=== PATIENT | female | born 1945 ===

== ENCOUNTER 2018-01-21 18:01 | Inpatient (IN) | payer MEDICARE ==
[2018-01-21 18:01] VITALS: BMI 23.0
--- NOTE | 2018-01-21 19:26 | ED PDOC ---
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 Patient reports she slipped at the threshold of building on wet metal. When she fell, her left leg went under her and her ankle twisted. Patient reports sever pain on inside of left ankle and on knee. She denies numbness, lesions or any other injuries. Injury was splinted and iced by firemen on scene and she was transported here. PMD: Dr. Martines - Knee Description Of Injury: Fell - Ankle/Foot Description Of Injury: Fell Past Medical History Reviewed: Historical Data, Nursing Documentation, Vital Signs Vital Signs: Last Vital Signs Temp 98.6 F 01/21/18 18:05 Pulse 68 01/21/18 18:05 Resp 19 01/21/18 18:05 BP 141/75 01/21/18 18:05 Pulse Ox 100 01/21/18 18:05 - Medical History PMH: Arthritis, HTN, Hypercholesterolemia, Osteoporosis - Surgical History Surgical History: (x 1) - Family History Family History: States: No Known Family Hx - Social History Current smoker - smoking cessation education provided: No Ex-Smoker (has not smoked in the last 12 months): No Alcohol: None Drugs: Denies - Home Medications Home Medications: Ambulatory Orders Medication Instructions Recorded Atorvastatin [Lipitor] 40 mg PO DAILY 01/22/18 Dicyclomine [Bentyl] 20 mg PO TID 01/22/18 Omeprazole 40 mg PO DAILY 01/22/18 Valsartan/Hydrochlorothiazide 1 mg PO DAILY 01/22/18 [Diovan Hct 160-12.5 mg Tab] Acetaminophen [Tylenol 325mg tab] 650 mg PO Q6 PRN tab 01/26/18 Cephalexin [Keflex] 500 mg PO Q12 cap 01/26/18 Enoxaparin [Lovenox] 40 mg SC DAILY syr 01/26/18 oxyCODONE/Acetaminophen [Percocet 1 tab PO Q4 PRN tab 01/26/18 5/325 mg Tab] oxyCODONE/Acetaminophen [Percocet 2 tab PO Q4 PRN tab 01/26/18 5/325 mg Tab] - Allergies Allergies/Adverse Reactions: Allergies Allergy/AdvReac Type Severity Reaction Status Date / Time No Known Allergies Allergy Verified 01/21/18 18:05 Review of Systems ROS Statement: Except As Marked, All Systems Reviewed And Found Negative Musculoskeletal: Positive for: Other (left knee and ankle pain ) Physical Exam - Reviewed Nursing Documentation Reviewed: Yes Vital Signs Reviewed: Yes - Physical Exam Appears: Positive for: In Acute Distress (painful ) Head Exam: Positive for: ATRAUMATIC, NORMOCEPHALIC Skin: Positive for: Warm, Dry Eye Exam: Positive for: EOMI, PERRL ENT: Positive for: Pharynx Is (clear). Negative for: Pharyngeal Erythema, Tonsillar Exudate Neck: Positive for: Painless ROM, Supple Cardiovascular/Chest: Positive for: Regular Rate, Rhythm. Negative for: Murmur Respiratory: Positive for: Normal Breath Sounds. Negative for: Wheezing Gastrointestinal/Abdominal: Positive for: Soft. Negative for: Mass, Distended, Guarding, Rebound Back: Positive for: Normal Inspection. Negative for: Decreased ROM Extremity: Positive for: Capillary Refill (< 2 seconds), Other (Left knee: no deformity, tenderness to palpation on patella, flexion and extension intact. No tenderness to palpation at proximal fibula. Left ankle: Bilateral malleolar edema, tenderness to the medial malleolus, no tenderness at lateral malleolus, no tenderness at base of fifth metatarsal, plantar and dorsiflexion elicit pain, 4+/5 in strength, light touch intact, pedal pulses intact) Lymphatic: Negative for: Adenopathy Neurologic/Psych: Positive for: Alert, Oriented (x3). Negative for: Motor/Sensory Deficits - Laboratory Results Result Diagrams: 01/26/18 05:40 01/26/18 05:40 - ECG ECG: Positive for: Interpreted By Me ECG Rhythm: Positive for: Normal QRS, Normal ST Segment, Sinus Rhythm, Junctional Rhythm O2 Sat by Pulse Oximetry: 100 (RA) Pulse Ox Interpretation: Normal Medical Decision Making Medical Decision Making: Time: 1856 Initial Impression: Ankle and knee injury Initial Impression: --Left knee XR --Morphine 3 mg IM --Motrin 600 mg PO --Left ankle XR --Left tibia fibula XR Time: 1929 --Patient reports she forgot that she has been having vomiting and diarrhea for the past week. She has associated left sided abdominal pain for the last two days. She has been unable to eat since and reports dizziness. On exam, patients abdomen is soft, tender to palpation in the left upper and lower quadrant, no mass, no guarding, and no rebound. Diverticulitis workup initiated. Time:2044 --XR demonstrated displaced trimalleolar fracture. Will keep patient NPO for now, pending podiatry consult. Discussed findings and plan of care with patient. --XR demonstrated nondisplaced patellar fracture. --Labs otherwise unremarkable. Serious acute diverticular disease unlikely. Podiatry evaluated pt. Pt to have ankle reduction in ER and admit for surgery. C onsents obtained. [employer] glazier apprentice used: [id number] Post sedation/reduction. DW Dr Lynn Hospitalist for admission. 1120p HARLAN Ellis Orthopedist re: patella fx. Requests CT knee. Order placed. Scribe Attestation: Documented by Margarita Del Valle, acting as a scribe for Lisa Ribera MD Provider Scribe Attestation: All medical record entries made by the Scribe were at my direction and personally dictated by me. I have reviewed the chart and agree that the record accurately reflects my personal performance of the history, physical exam, medical decision making, and the department course for this patient. I have also personally directed, reviewed, and agree with the discharge instructions and disposition. Disposition - Clinical Impression Clinical Impression: Trimalleolar fracture of ankle, closed, Patella fracture Discussed With Dr.: Shravan Lynn Counseled Patient/Family Regarding: Studies Performed, Diagnosis - Disposition Disposition Time: 22:00 Condition: FAIR - Pt Status Changed To: Hospital Disposition Of: Inpatient - Admit Certification Admit to Inpatient:: After my assessment, the patient will require hospitalization for at least two midnights. This is because of the severity of symptoms shown, intensity of services needed, and/or the medical risk in this patient being treated as an outpatient. - POA Present On Arrival: Falls Or Trauma ED Procedural Sedation - Pre Anesthesia Assessment Chief Complaint: Lower Extremity Problem/Injury Past Medical History: Medications Reviewed, Allergies Reviewed, Record Review Previous Surgies: Reviewed Family History/Social History: Reviewed - Physical Exam/Review of Systems Cardiovascular: Regular Rate and Rhythm, Murmurs, Normal S1, S2 Respiratory/Chest: Clear to Auscultation, Good Air Exchange Neurological: GCS=15, CN II-XII Intact, Speech Normal, Motor Func Grossly Inta ct, Normal Sensory Function, Normal Cerebellar Funct Abdomen: Normal Bowel Sounds Mental Status: Alert and Oriented X 3 - Pre-Procedure Airway Assessment History of difficult intubation or surgical airway (i.e trach):: No Inability to extend neck:: No Mouth opening less than two finger breadth:: No Diagnosis of sleep apnea:: No Less than three finger breadth to hyoid bone:: No ASA Criteria: 1 - Healthy, normal. 2 - Mild systemic disease (No functional limitations, mildline obesity, DM withot complications, Hypertention). 3 - Severe systemic disease (Some functional limitation, stable angina, morbid obesity, controlled COPD/Asthma/CHF). 4 - Sever systemic disease constant thr eat to life (Unstable angina, active symptoms of COPD/Asthma, CHF/Hypertension. 5 - Moribund ASA Clarification: ASA II Mallampati (airway): Class I - Intra-Procedure (Medications) Medications Given: Discontinued Medications Sodium Chloride (Sodium Chloride 0.9%) 1,000 mls @ 1,000 mls/hr IV .Q1H STA Stop: 01/21/18 20:47 Last Admin: 01/21/18 20:01 Dose: 1,000 mls/hr eMAR Start Stop Document 01/21/18 20:01 ND (Rec: 01/21/18 20:02 ND [id number]) Intravenous Solution Start Date 01/21/18 Start Time 20:01 End Date 01/21/18 End time 21:01 Total Infusion Time 60 Ibuprofen (Motrin Tab) 600 mg PO STAT STA Stop: 01/21/18 18:58 Last Admin: 01/21/18 19:14 Dose: 600 mg [facility] Pain Assessment Document 01/21/18 19:14 ND (Rec: 01/21/18 19:17 ND [id number]) Pain Reassessment Is this a pain reassessment? No Presence of Pain Presence of Pain Yes Pain Scale Used Pain Scale Used Numeric Location Left, Right or Bilateral Left Upper or Lower Upper Pain Location Body Site Abdomen Description Description Sharp Intensity of Pain at present 8 Acceptable Level of Pain 2 Re-Assess: [facility] Pain Reassessment Document 01/21/18 20:14 ND (Rec: 01/21/18 20:18 ND [id number]) Sleep Is patient sleeping during reassessment? No Pain Reassessment Pain not relieved and LIP/MD was No notified Pain Scale Used Numeric Pain Scale Level 7 Left, Right or Bilateral Left Upper or Lower Upper Pain Location Body Site Abdomen Description Constant Iohexol (Omnipaque 240 (50 Ml)) 50 ml PO ONCE ONE Stop: 01/21/18 19:49 Last Admin: 01/21/18 20:01 Dose: 50 ml Morphine Sulfate (Morphine) 3 mg IM STAT STA Stop: 01/21/18 18:58 Last Admin: 01/21/18 19:18 Dose: Not Given Non-Admin Reason: Patient Refused [facility] Pain Assessment Document 01/21/18 19:18 ND (Rec: 01/21/18 19:19 ND [id number]) Pain Reassessment Is this a pain reassessment? No Sleep Is patient sleeping during reassessment? No Presence of Pain Presence of Pain Yes Pain Scale Used Pain Scale Used Numeric Location Left, Right or Bilateral Left Pain Location Body Site Ankle Foot Description Description Constant Intensity of Pain at present 10 Acceptable Level of Pain 2 Pain Behavior Facial Grimacing Aggravating Factors Exercise/Activity Propofol (Diprivan) 200 mg IV ONCE ONE Stop: 01/21/18 21:57 - Post-Procedure Post Procedure Note: Pt awake alert and oriented post procedure with no focal deficits, lungs clear. LEFT leg short leg bivalved cast in place. Digits with normal motor, <2 sec CR, light touch intact. See anesthesia note
[2018-01-21] MEDS ORDERED: Sodium Chloride 0.9% 1,000 ML IV STA (19:48)
[2018-01-21] MEDS ORDERED: Iohexol 240 (50 ml) PO ONE (19:48)
[2018-01-21] MEDS ORDERED: Iohexol 240 (50 ml) ONE (19:59)
[2018-01-21 20:22] LABS: BASO % 0.5 % (0.0-2.0); EOS # 0.1 K/uL (0.0-0.7); EOS % 0.8 % (0.0-4.0); HEMOGLOBIN 12.4 g/dL (12.0-16.0); LYMPH # 0.9 K/uL (1.0-4.3); LYMPH % 12.7 % (20.0-40.0); MEAN CELL VOLUME 93.1 fl (81.0-99.0); MEAN CORPUSCULAR HEMOGLOBIN 31.6 pg (27.0-31.0); MEAN CORPUSCULAR HGB CONC 33.9 g/dL (33.0-37.0); MEAN PLATELET VOLUME 9.4 fl (7.2-11.7); MONO # 0.4 K/uL (0.0-0.8); MONO % 5.7 % (0.0-10.0); NEUT # 5.6 K/uL (1.8-7.0); NEUT % 80.3 % (50.0-75.0); RBC 3.91 Mil/uL (3.80-5.20); RED CELL DISTRIBUTION WIDTH 14.7 % (11.5-14.5)
[2018-01-21 20:30] LABS: ALB/GLOB RATIO 1.2 (1.0-2.1); ALT/SGPT 31 U/L (9-52); AST/SGOT 42 U/L (14-36); BLOOD UREA NITROGEN 17 mg/dl (7-17); CALCIUM 9.5 mg/dL (8.4-10.2); GFR NON-AFRICAN AMERICAN 54; LIPASE 131 U/L (23-300)
[2018-01-21 21:20] LABS: PROTHROMBIN TIME 11.5 Seconds (9.8-13.1)
[2018-01-21] MEDS ORDERED: Lidocaine PF 2% (5 ml) Inj (For Cardiac Arrhy) ONE (21:46)
[2018-01-21] MEDS ORDERED: Povidone Iodine Topical 10% Sol ONE (21:46)
[2018-01-21] MEDS ORDERED: Propofol 10 mg/ml Inj (20 ML) IV ONE (21:56)
[2018-01-21] MEDS ORDERED: Propofol 10 mg/ml 0 MG/0 ML VIAL ONE (22:04)
--- NOTE | 2018-01-21 22:05 | CP.PCM.CON ---
History of Present Illness - History of Present Illness History of Present Illness: Podiatry Consult Note- Dr. Demarco 72F with PMH of HLD, HTN, diverticulosis and osteoarthritis seen and evaluated for left ankle pain. Patients daughter is at bedside. Patient reports as she was walking in from outside, her right foot slipped and she twisted her left ankle and landed awkwardly at 5pm tonight. Reports ankle looked out of place and heard a pop in which ankle appeared normal. Reports pain persisted and decided to go to the ER. Rates her pain at the ankle 810. Describes pain as a throbbing, achy pain. Denies numbness or tingling. Reports swelling to the ankle. Reports last eating and drinking at 8pm. Denies nausea, fever, shortness of breath, chest pain or chills. Reports pain to the left knee as well. PMD: Dr. Lacy PMH: HTN, HLD, diverticulosis and osteoarthritis PSH: FH: non-contributory SH: denies smoking, drinking alcohol, and illicit drug use ALL: NKDA MEDS: see med list Past Patient History - Infectious Disease Hx of Infectious Diseases: None - Past Social History Alcohol: None Drugs: Denies - CARDIAC Hx Hypercholesterolemia: Yes Hx Hypertension: Yes - MUSCULOSKELETAL/RHEUMATOLOGICAL Hx Arthritis: Yes Hx Osteoporosis: Yes - PSYCHIATRIC Hx Substance Use: No Meds Allergies/Adverse Reactions: Allergies Allergy/AdvReac Type Severity Reaction Status Date / Time No Known Allergies Allergy Verified 01/21/18 18:05 Physical Exam - Constitutional Appears: Well, Non-toxic, No Acute Distress - Extremities Exam Extremities exam: Negative for: calf tenderness Additional comments: VASC: DP and PT 2/4 BL, CFT < 3 seconds x 10 digit, temperature gradient cool to cool, localized nonpitting edema noted to entire left ankle ORTHO: pain with palpation to the entire ankle as well as medial and lateral malleolus, anterior ankle. Pain with passive ankle ROM, limited ankle ROM and MM secondary to guarding NEURO: gross and protective sensation intact DERM: no open lesions, no ecchymosis, no blisters, skin tugor and texture WNL Results - Vital Signs Recent Vital Signs: Last Vital Signs Temp 98.6 F 01/21/18 18:05 Pulse 68 01/21/18 18:05 Resp 19 01/21/18 18:05 BP 141/75 01/21/18 18:05 Pulse Ox 100 01/21/18 20:52 - Labs Result Diagrams: 01/21/18 20:17 01/21/18 20:17 Labs: Laboratory Results - last 24 hr 01/21/18 01/21/18 01/21/18 20:17 20:17 21:05 WBC 7.0 RBC 3.91 Hgb 12.4 Hct 36.4 MCV 93.1 MCH 31.6 H MCHC 33.9 RDW 14.7 H Plt Count 257 MPV 9.4 Neut % (Auto) 80.3 H Lymph % (Auto) 12.7 L [place] % (Auto) 5.7 Eos % (Auto) 0.8 Baso % (Auto) 0.5 Neut # (Auto) 5.6 Lymph # (Auto) 0.9 L [place] # (Auto) 0.4 Eos # (Auto) 0.1 Baso # (Auto) 0.0 PT 11.5 INR 1.0 APTT 27.0 Sodium 139 Potassium 4.1 Chloride 105 Carbon Dioxide 27 Anion Gap 11 BUN 17 Creatinine 1.0 Est GFR ( Amer) > 60 Est GFR (Non-Af Amer) 54 Random Glucose 109 H Calcium 9.5 Total Bilirubin 0.4 AST 42 H ALT 31 Alkaline Phosphatase 107 Total Protein 7.4 Albumin 4.0 Globulin 3.4 Albumin/Globulin Ratio 1.2 Lipase 131 Assessment & Plan - Assessment and Plan (Free Text) Assessment: 72F with PMH of HTN, HLD with Left displaced bimalleolar ankle fracture Plan: Patient seen and examined Discussed plan in detail with attending Dr. Demarco Chart, labs, vitals reviewed X-rays reviewed- left displaced left bimalleolar fracture npted Discussed plan with patient and daughter in detail, including closed reduction of left ankle fracture and surgical intervention of left ankle fracture with open reduction internal fixation. Explained to patient benefits, complications, alternatives and patient is agreeable. Patient is agreeable to closed reduction of displaced left ankle fracture in ED Patient consented to closed reduction of displaced left ankle fracture ED physician provided conscious sedation, administered 10cc of 2% lidocaine plain in hematoma block fashion Closed reduction performed, cast applied, bivalved Post reduction X-rays left ankle ordered CT ordered RICE protocol NWB to right lower extremity with assisting device Will consult PT once on floors Thank you for allowing us to participate in patient's care
[2018-01-21] MEDS ORDERED: Propofol 10 mg/ml Inj (20 ML) ONE (22:06)
[2018-01-21] MEDS ORDERED: Flumazenil 0.1 mg/ml Inj (5ml) IVP ONE (22:15)
[2018-01-21] MEDS ORDERED: Dextrose 5%/0.9% NS 1,000 ML IV ONE (23:38)
--- NOTE | 2018-01-21 23:43 | CP.PCM.HP ---
<Jaleel Rucker - Last Filed: 01/21/18 23:38> History of Present Illness - History of Present Illness History of Present Illness: CC: left ankle fracture HPI: 72 y/o woman w/ pmh of HTN, HLD, diverticulosis and Osteoarthritis presents to ED w/ left ankle fracture s/p fall. Patient fell exiting building of residence. Patient was leaving building due to fire alarm and slipped on wet metal grating floor. Patient denies head trauma, LOC, or any other trauma. Patient's daughter is at bedside. Patient has no other history of falls. Patient normally ambulates w/o any assist device. Patient denies current headaches, chest pain, SOB, abdominal pain, nausea, vomiting, diarrhea, dysuria , or fever. Patient did have epigastric/LUQ pain 2-3 days ago w/ x1 episode of non-bilious/non-bloody vomit which has resolved but intermittently occurs in the past. ED course: vitals: 98.6F, 72 beats/min, 144/77 mm Hg, resp 17, O2 100% room air CBC:7.0>12.4/36.4<257 CMP: 139/4.1, 105/27, 17/1.0, glucose 109, AST 42, ALT 31, alk phos 107 Lipase: 131 CXR: (preliminary) no active disease process Ankle XR: (preliminary) fracture at left medial and lateral malleolus Knee XR: (preliminary) patellar fracture Tibia/Fibula XR: (preliminary) fracture at left medial and lateral malleolus Ankle XR: s/p closed reduction Ankle XR: s/p bivalve cast CT Lower Extremity: pending motrin 600 mg once morphine 3 mg IM once IVF NS 1L bolus PMD: Dr. Lacy PMH: HTN, HLD, diverticulosis and Osteoarthritis meds: see med list PSH: 44 years ago Fam: non-contributory SOC: denies smoking, alcohol, and drugs ROS: 12 points assessed and negative unless otherwise reported in HPI Present on Admission - Present on Admission Any Indicators Present on Admission: No History of DVT/PE: No History of Uncontrolled Diabetes: No Urinary Catheter: No Decubitus Ulcer Present: No Review of Systems - Review of Systems All systems: reviewed and no additional remarkable complaints except - Constitutional Constitutional: absent: Chills, Fever, Headache - EENT Eyes: absent: Change in Vision - Cardiovascular Cardiovascular: absent: Chest Pain - Respiratory Respiratory: absent: Cough, Dyspnea - Gastrointestinal Gastrointestinal: absent: Abdominal Pain, Diarrhea, Hematochezia, Melena, Nausea , Vomiting - Genitourinary Genitourinary: absent: Dysuria - Musculoskeletal Musculoskeletal: As Per HPI - Integumentary Integumentary: absent: Rash - Neurological Neurological: absent: Confusion, Dizziness, Headaches Past Patient History - Infectious Disease Hx of Infectious Diseases: None - Past Social History Alcohol: None Drugs: Denies - CARDIAC Hx Hypercholesterolemia: Yes Hx Hypertension: Yes - MUSCULOSKELETAL/RHEUMATOLOGICAL Hx Arthritis: Yes Hx Osteoporosis: Yes - PSYCHIATRIC Hx Substance Use: No Meds Allergies/Adverse Reactions: Allergies Allergy/AdvReac Type Severity Reaction Status Date / Time No Known Allergies Allergy Verified 01/21/18 18:05 Physical Exam - Constitutional Appears: Non-toxic, No Acute Distress - Head Exam Head Exam: ATRAUMATIC, NORMAL INSPECTION, NORMOCEPHALIC - Eye Exam Eye Exam: Normal appearance - ENT Exam ENT Exam: Mucous Membranes Moist - Neck Exam Neck exam: Positive for: Full Rom. Negative for: Tenderness - Respiratory Exam Respiratory Exam: Clear to Auscultation Bilateral, NORMAL BREATHING PATTERN. absent: Accessory Muscle Use, Decreased Breath Sounds, Rales, Rhonchi, Wheezes, Respiratory Distress - Cardiovascular Exam Cardiovascular Exam: REGULAR RHYTHM, RRR, +S1, +S2. absent: Tachycardia - GI/Abdominal Exam GI & Abdominal Exam: Normal Bowel Sounds, Soft. absent: Distended, Tenderness - Extremities Exam Extremities exam: Positive for: tenderness. Negative for: calf tenderness Additional comments: left lower extremity in bivalve cast s/p closed reduction, right LE full ROM - Neurological Exam Neurological exam: Alert, Oriented x3 - Skin Skin Exam: Dry, Intact, Normal Color, Warm Results - Vital Signs Recent Vital Signs: Last Vital Signs Temp 98.6 F 01/21/18 18:05 Pulse 72 01/21/18 22:58 Resp 17 01/21/18 22:58 BP 135/77 01/21/18 22:58 Pulse Ox 100 01/21/18 23:24 - Labs Result Diagrams: 01/21/18 20:17 01/21/18 20:17 Labs: Laboratory Results - last 24 hr 01/21/18 01/21/18 01/21/18 20:17 20:17 21:05 WBC 7.0 RBC 3.91 Hgb 12.4 Hct 36.4 MCV 93.1 MCH 31.6 H MCHC 33.9 RDW 14.7 H Plt Count 257 MPV 9.4 Neut % (Auto) 80.3 H Lymph % (Auto) 12.7 L [place] % (Auto) 5.7 Eos % (Auto) 0.8 Baso % (Auto) 0.5 Neut # (Auto) 5.6 Lymph # (Auto) 0.9 L [place] # (Auto) 0.4 Eos # (Auto) 0.1 Baso # (Auto) 0.0 PT 11.5 INR 1.0 APTT 27.0 Sodium 139 Potassium 4.1 Chloride 105 Carbon Dioxide 27 Anion Gap 11 BUN 17 Creatinine 1.0 Est GFR ( Amer) > 60 Est GFR (Non-Af Amer) 54 Random Glucose 109 H Calcium 9.5 Total Bilirubin 0.4 AST 42 H ALT 31 Alkaline Phosphatase 107 Total Protein 7.4 Albumin 4.0 Globulin 3.4 Albumin/Globulin Ratio 1.2 Lipase 131 Assessment & Plan (1) Trimalleolar fracture of ankle, closed Status: Acute (2) Patella fracture Status: Acute (3) HTN (hypertension) Status: Chronic (4) Diverticulosis Status: Chronic - Assessment and Plan (Free Text) Assessment: 72 y/o woman w/ pmh of HTN, HLD, diverticulosis and Osteoarthritis presents to ED w/ left ankle fracture s/p fall Plan: Left ankle fracture - s/p fall - left trimalleolar fracture - vitals signs stable - CBC:7.0>12.4/36.4<257 - CMP: 139/4.1, 105/27, 17/1.0, glucose 109, AST 42, ALT 31, alk phos 107 - CXR: (preliminary) no active disease process - Ankle XR: (preliminary) fracture at left medial and lateral malleolus - Tibia/Fibula XR: (preliminary) fracture at left medial and lateral malleolus - Ankle XR: s/p closed reduction - Ankle XR: s/p bivalve cast - CT Lower Extremity: pending - motrin 600 mg once - morphine 3 mg IM once - IVF NS 1L bolus - f/u CBC, CMP - podiatry consulted, Dr. Dav - NPO after midnight except meds - pain management: tylenol for mild pain, motrin for moderate pain, percocet for severe pain - IVF D5 NS @ 100 mL/hr Patellar fracture - Knee XR: (preliminary) patellar fracture - orhtopaedic consult ordered HTN - stable BP - monitor for acute changes Diverticulosis - Hx of diverticulosis - no abdominal pain currently - Lipase: 131 Prophylactic measures - DVT: lovenox 40 mg SC daily (hold tomorrow if going to OR) <Shravan Lynn - Last Filed: 01/22/18 05:58> Results - Vital Signs Recent Vital Signs: Last Vital Signs Temp 99.0 F 01/22/18 01:51 Pulse 69 01/22/18 01:51 Resp 19 01/22/18 01:51 BP 135/68 01/22/18 01:51 Pulse Ox 99 01/22/18 01:51 - Labs Result Diagrams: 01/21/18 20:17 01/21/18 20:17 Labs: Laboratory Results - last 24 hr 01/21/18 01/21/18 01/21/18 20:17 20:17 21:05 WBC 7.0 RBC 3.91 Hgb 12.4 Hct 36.4 MCV 93.1 MCH 31.6 H MCHC 33.9 RDW 14.7 H Plt Count 257 MPV 9.4 Neut % (Auto) 80.3 H Lymph % (Auto) 12.7 L [place] % (Auto) 5.7 Eos % (Auto) 0.8 Baso % (Auto) 0.5 Neut # (Auto) 5.6 Lymph # (Auto) 0.9 L [place] # (Auto) 0.4 Eos # (Auto) 0.1 Baso # (Auto) 0.0 PT 11.5 INR 1.0 APTT 27.0 Sodium 139 Potassium 4.1 Chloride 105 Carbon Dioxide 27 Anion Gap 11 BUN 17 Creatinine 1.0 Est GFR ( Amer) > 60 Est GFR (Non-Af Amer) 54 Random Glucose 109 H Calcium 9.5 Total Bilirubin 0.4 AST 42 H ALT 31 Alkaline Phosphatase 107 Total Protein 7.4 Albumin 4.0 Globulin 3.4 Albumin/Globulin Ratio 1.2 Lipase 131 Attending/Attestation - Attestation I have personally seen and examined this patient.: Yes I have fully participated in the care of the patient.: Yes I have reviewed all pertinent clinical information: Yes Notes (Text): 01/22/18 05:47 I saw examined and discussed this patient with Dr Rucker. I agree with the Assessment and plan which reflect my direct input. This is a 72 years old female who fell twisting her left ankle resulting in fracture to the left ankle and to the left Patella. She will be seen by Podiatry Dr Demarco for the Left ankle fracture and by Dr Ellis, orthopedic for the Fractured Patella. Shravan Lynn MD
[2018-01-22] MEDS: Oxycodone/Acetaminophen 5/325 mg Tab PO PRN ×3 (02:11→20:04)
[2018-01-22 06:24] LABS: BASO % 0.5 % (0.0-2.0); EOS # 0.1 K/uL (0.0-0.7); EOS % 1.4 % (0.0-4.0); LYMPH # 1.3 K/uL (1.0-4.3); LYMPH % 26.5 % (20.0-40.0); MEAN CELL VOLUME 93.7 fl (81.0-99.0); MEAN CORPUSCULAR HEMOGLOBIN 31.5 pg (27.0-31.0); MEAN CORPUSCULAR HGB CONC 33.6 g/dL (33.0-37.0); MEAN PLATELET VOLUME 8.8 fl (7.2-11.7); MONO # 0.5 K/uL (0.0-0.8); MONO % 10.8 % (0.0-10.0); NEUT % 60.8 % (50.0-75.0); NRBC % 0.1 % (0.0-0.0); RBC 3.5 Mil/uL (3.80-5.20); RED CELL DISTRIBUTION WIDTH 14.5 % (11.5-14.5); WHITE BLOOD COUNT 4.9 K/uL (4.8-10.8)
[2018-01-22 06:47] LABS: ALB/GLOB RATIO 1.1 (1.0-2.1); ALBUMIN 3.4 g/dL (3.5-5.0); ALT/SGPT 27 U/L (9-52); AST/SGOT 29 U/L (14-36); BLOOD UREA NITROGEN 16 mg/dl (7-17); CALCIUM 8.9 mg/dL (8.4-10.2); GFR NON-AFRICAN AMERICAN 54
--- NOTE | 2018-01-22 08:13 | CP.PCM.PN ---
Subjective - Date & Time of Evaluation Date of Evaluation: 01/22/18 Time of Evaluation: 08:13 - Subjective Subjective: Patient seen this morning at bedside, reports less pain, no overnight events. Seen and evaluated by Podiatry pending to OR on . No other complaints at this time. Afebrile. VSS Objective - Vital Signs/Intake and Output Vital Signs (last 24 hours): Temp Pulse Resp BP Pulse Ox 99.0 F 69 19 135/68 99 01/22/18 01:51 01/22/18 01:51 01/22/18 01:51 01/22/18 01:51 01/22/18 01:51 - Medications Medications: Current Medications Acetaminophen (Tylenol 325mg Tab) 650 mg PO Q6 PRN PRN Reason: Pain, Mild (1-3) Enoxaparin Sodium (Lovenox) 40 mg SC DAILY NICK PRN Reason: Protocol Dextrose/Sodium Chloride (Dextrose 5%/0.9% Ns 1000 Ml) 1,000 mls @ 100 mls/hr IV .Q10H ONE Stop: 01/22/18 09:37 Last Admin: 01/22/18 02:11 Dose: 100 mls/hr Ibuprofen (Motrin Tab) 400 mg PO Q6H PRN PRN Reason: Pain, moderate (4-7) Last Admin: 01/22/18 02:15 Dose: 400 mg Oxycodone/Acetaminophen (Percocet 5/325 Mg Tab) 1 tab PO Q4 PRN PRN Reason: Pain, severe (8-10) Stop: 01/24/18 23:39 - Labs Labs: 01/22/18 05:45 01/22/18 05:45 PT 11.5 Seconds (9.8-13.1) 01/21/18 21:05 INR 1.0 01/21/18 21:05 APTT 27.0 Seconds (25.6-37.1) 01/21/18 21:05 - Constitutional Appears: No Acute Distress - Head Exam Head Exam: NORMAL INSPECTION - Eye Exam Eye Exam: EOMI, PERRL - Respiratory Exam Respiratory Exam: Clear to Ausculation Bilateral, NORMAL BREATHING PATTERN. absent: Rales, Wheezes - Cardiovascular Exam Cardiovascular Exam: REGULAR RHYTHM, +S1, +S2 - GI/Abdominal Exam GI & Abdominal Exam: Soft, Normal Bowel Sounds. absent: Distended, Tenderness - Extremities Exam Extremities Exam: absent: Calf Tenderness Additional comments: L knee immobilizer noted, ankle cast noted in place, toes sensation intact able to move them. - Neurological Exam Neurological Exam: Alert, Awake, Oriented x3 - Psychiatric Exam Psychiatric exam: Normal Mood - Skin Skin Exam: Dry, Warm Assessment and Plan - Assessment and Plan (Free Text) Assessment: 72 y/o woman w/ PMH of HTN, HLD, diverticulosis and Osteoarthritis admitted w/ left ankle fracture and patellar fracture s/p fall. Left ankle fracture (trimalleolar) - s/p fall - Ankle XR: fracture at left medial and lateral malleolus - Tibia/Fibula XR: fracture at left medial and lateral malleolus - s/p close reduction in ED - CT Lower Extremity: official report pending - motrin 600 mg - percocet for severe pain - IVF D5 NS @ 100 mL/hr - podiatry consulted, Dr. Demarco - Scheduled to OR on Patellar fracture - Knee XR: (preliminary) patellar fracture - orhtopaedic consult ordered HTN - stable BP - monitor for acute changes Diverticulosis - Hx of diverticulosis - mild abdominal pain - Resume Bentyl TID prn - Lipase: 131 Prophylactic measures - DVT: lovenox 40 mg SC daily
--- NOTE | 2018-01-22 08:37 | RAD ---
Date of service: 01/21/2018 PROCEDURE: Left Ankle Radiographs. HISTORY: post red COMPARISON: Left ankle radiographs 01/21/2018, 8:20 p.m.. FINDINGS: BONES: Cast obscures fine bone and soft tissue details. Bimalleolar fractures appreciated once again. JOINTS: The ankle mortise appears more normalize than previously shown though some widening remains at the medial segment. SOFT TISSUES: Diffuse soft tissue edema reiterated. OTHER FINDINGS: None. IMPRESSION: Postreduction radiographs demonstrate improvement in positioning of the ankle mortise with bimalleolar fractures reiterated. Cast obscures fine bone and soft-tissue detail.
--- NOTE | 2018-01-22 08:41 | RAD ---
Date of service: 01/21/2018 PROCEDURE: Left Ankle Radiographs. HISTORY: closed reduction displaced left ankle fracture COMPARISON: None FINDINGS: BONES: Postreduction radiographs demonstrate markedly improved positioning of the medial as well as lateral malleolar fractures although limited widening of the medial mortise remains though markedly improved in the interval. JOINTS: Talar dome remains intact mild residual widening of the medial ankle mortise now evident. SOFT TISSUES: Diffuse soft tissue edema reiterated. OTHER FINDINGS: None. IMPRESSION: Marked improvement in medial and lateral malleolar fracture status post reduction. Marked improvement in ankle mortise is noted with some residual widening of the medial mortise remaining.
--- NOTE | 2018-01-22 08:43 | RAD ---
Date of service: 01/21/2018 PROCEDURE: Left Ankle Radiographs. HISTORY: fall severe medial mall pain COMPARISON: None FINDINGS: BONES: Transverse fracture at the medial malleolus is appreciated with oblique fracture of the lateral malleolus identified. Mild comminution is appreciated at the medial malleolus fracture. Both medial lateral malleolar fractures are displaced medially. JOINTS: There is subluxation of the talus laterally approximately 50 percent of the with of the dome with marked widening of the medial mortise evident. No anterior or posterior distraction of the talus apparent. SOFT TISSUES: Moderate circumferential soft tissue edema identified. OTHER FINDINGS: None. IMPRESSION: Fracture subluxation apparent with medial and lateral malleolar fractures as discussed above and lateral subluxation of the talus as well. Moderate circumferential left ankle soft tissue edema identified.
--- NOTE | 2018-01-22 08:44 | RAD ---
Date of service: 01/21/2018 HISTORY: trimall fracture COMPARISON: No prior. FINDINGS: LUNGS: No active pulmonary disease. PLEURA: No significant pleural effusion identified, no pneumothorax apparent. CARDIOVASCULAR: No pulmonary vascular congestion. Cardiac silhouette appears prominent, potentially magnified by technique. OSSEOUS STRUCTURES: No significant abnormalities. VISUALIZED UPPER ABDOMEN: Normal. OTHER FINDINGS: None. IMPRESSION: No pulmonary vascular congestion or acute infiltrate/pleural effusion.
--- NOTE | 2018-01-22 08:49 | RAD ---
Date of service: 01/21/2018 PROCEDURE: Radiographs of the left tibia and fibula. HISTORY: ankle sprain and leg pain COMPARISON: None available. TECHNIQUE: Frontal and lateral views obtained. FINDINGS: BONES: Medial lateral malleolar fracture identified as discussed in separate right ankle radiographs also performed 01/21/2018. The remainder of the tibia and fibula are intact otherwise. JOINT SPACES: Subluxed talus laterally. Degenerative changes are identified at the left knee joint. OTHER FINDINGS: None. IMPRESSION: Fracture of the medial lateral malleoli are appreciated and described in greater detail in separate left ankle radiographs as well as lateral talar subluxation.
--- NOTE | 2018-01-22 08:51 | RAD ---
Date of service: 01/21/2018 PROCEDURE: Left Knee Radiographs. HISTORY: Pain. COMPARISON: None. FINDINGS: BONES: There is a transverse fracture through the inferior patella, likely articular. No dislocation or subluxation JOINTS: No dislocation or subluxation. Degenerative joint space narrowing is appreciate the medial lateral femorotibial compartments as well as the patellofemoral articulation. Soft tissue calcifications are identified possibly in the medial and lateral menisci. JOINT EFFUSION: None. OTHER FINDINGS: None. IMPRESSION: Transverse fracture through the inferior patella is identified, likely articular. No subluxation or dislocation. Degenerative changes appear moderate in severity.
--- NOTE | 2018-01-22 09:24 | CARD ---
APPROVED REPORT Date of service: 01/21/2018 <Conclusion> Normal sinus rhythm Normal ECG
--- NOTE | 2018-01-22 11:36 | CT ---
Date of service: 01/21/2018 PROCEDURE: LEFT LOWER EXTREMITY CT WITHOUT CONTRAST HISTORY: LEFT knee and ankle fracture COMPARISON: Leg and ankle radiographs 01/21/2018. TECHNIQUE: A volumetric CT acquisition was performed through the left knee terminating at the midfoot without intravenous contrast. Reformatted dataset have been provided in multiple planes as well. Contrast Dose: None Radiation dose:Total exam DLP = 687.42 mGy-cm. This CT exam was performed using one or more of the following dose reduction techniques: Automated exposure control, adjustment of the mA and/or kV according to patient size, and/or use of iterative reconstruction technique. FINDINGS: Nondisplaced transverse fracture is reiterated through the inferior patella with mild prepatellar soft tissue edema identified. No underlying bony lesion identified. No subluxation of the patella. The visualized distal femur appears intact. Proximal and mid tibia and fibula are intact without acute fracture. Both the medial lateral malleolar fractures appear slightly distracted laterally toward the left by approximately 2 mm in terms of the medial malleolus and approximately 7.5 mm in terms of the lateral malleolus. The medial mortise measures 5.5 mm with the lateral mortise measuring only 1.5 mm. Limited comminution is seen related to the lateral malleolar fracture with a small fragment difficult to exclude related to the anterior malleolus medially. Punctate fracture fragments are seen related to medial malleolar fracture. A small chip fracture is identified at the lateral portion of the posterior malleolus. Soft tissue edema surrounds the left ankle but predominately medial and lateral. Trace emphysematous changes seen in the anterior ankle soft tissues represent vacuum phenomena from the trauma or penetrating injury. Clinically correlate further. Potential tendinous calcification or avulsion injury at the sustentacular talus and medial aspect of the navicular bone. IMPRESSION: Medial lateral malleolar fracture identified with limited lateral distraction of both major fracture fragments as discussed above. Limited widening of the medial mortise is appreciated and narrowing of the lateral mortise related to fracture fragment distraction as described. No dislocation. Small chip fracture seen related to the posterior malleolus and possibly also separate fracture related to the anterior malleolus. Potential tendinous calcification or avulsion injury at the sustentacular talus and medial aspect of the navicular bone. Transverse fracture is noted at the inferior patella without distraction. Soft tissue edema as discussed above. Trace related subcutaneous fat is noted anteriorly and could reflect vacuum related phenomena related to trauma or penetrating injury. Clinically correlate. Concordant preliminary report from [facility], 01/22/2018.
--- NOTE | 2018-01-22 12:16 | CP.PCM.CON ---
History of Present Illness - History of Present Illness History of Present Illness: Orthopedic consult: Dr. Thomas Patient is a 72 y/o F with PMH of HTN, HLD and diverticulosis admitted due to a fall injury which occurred yesterday. Patient's daughter at bedside. Orthopedics was consulted due to L knee pain. Patient reports slipping/tripping over doorway yesterday resulting in a twisting injury of her L ankle and knee. She admits to moderate pain located anteriorly about the knee that is dull in quality and intermittent in frequency. The pain is associated with swelling. The pain worsens with bending and lifting her LLE and alleviates with rest. She denies any radiation of pain, numbness or tingling. She denies CP/SOB/N/V/D/ fever/dysuria/melena. Review of Systems - Review of Systems All systems: reviewed and no additional remarkable complaints except Review of Systems: as per HPI Past Patient History - Infectious Disease Hx of Infectious Diseases: None - Past Medical History & Family History Past Medical History?: Yes - Past Social History Smoking Status: Never Smoked Alcohol: None Drugs: Denies - CARDIAC Hx Hypercholesterolemia: Yes Hx Hypertension: Yes - PULMONARY Hx Respiratory Disorders: No - NEUROLOGICAL Hx Neurological Disorder: No - HEENT Hx HEENT Problems: No - RENAL Hx Chronic Kidney Disease: No - ENDOCRINE/METABOLIC Hx Endocrine Disorders: No - HEMATOLOGICAL/ONCOLOGICAL Hx Blood Disorders: No - INTEGUMENTARY Hx Dermatological Problems: No - MUSCULOSKELETAL/RHEUMATOLOGICAL Hx Arthritis: Yes Hx Osteoporosis: Yes - GASTROINTESTINAL Hx Gastrointestinal Disorders: Yes Other/Comment: Diverticulosis - GENITOURINARY/GYNECOLOGICAL Hx Genitourinary Disorders: No - PSYCHIATRIC Hx Psychophysiologic Disorder: No Hx Substance Use: No - SURGICAL HISTORY Hx Section: Yes - ANESTHESIA Hx Anesthesia: Yes Hx Anesthesia Reactions: No Hx Malignant Hyperthermia: No Has any member of the family had a problem w/ anesthesia?: No Meds Allergies/Adverse Reactions: Allergies Allergy/AdvReac Type Severity Reaction Status Date / Time No Known Allergies Allergy Verified 01/21/18 18:05 - Medications Medications: Current Medications Acetaminophen (Tylenol 325mg Tab) 650 mg PO Q6 PRN PRN Reason: Pain, Mild (1-3) Atorvastatin Calcium (Lipitor) 40 mg PO DAILY NICK Enoxaparin Sodium (Lovenox) 40 mg SC DAILY NICK PRN Reason: Protocol Famotidine (Pepcid) 40 mg PO HS NICK Home Med (Valsartan/Hydrochlorothiazide [Diovan Hct 160-12.5 Mg Tab]) 1 mg PO DAILY NICK Ibuprofen (Motrin Tab) 400 mg PO Q6H PRN PRN Reason: Pain, moderate (4-7) Last Admin: 01/22/18 11:04 Dose: 400 mg Oxycodone/Acetaminophen (Percocet 5/325 Mg Tab) 1 tab PO Q4 PRN PRN Reason: Pain, severe (8-10) Stop: 01/24/18 23:39 Physical Exam - Constitutional Appears: Well, No Acute Distress - Head Exam Head Exam: ATRAUMATIC, NORMOCEPHALIC - Eye Exam Eye Exam: EOMI, Normal appearance, PERRL - ENT Exam ENT Exam: Mucous Membranes Moist, Normal Exam - Respiratory Exam Respiratory Exam: Clear to Auscultation Bilateral, NORMAL BREATHING PATTERN - Cardiovascular Exam Cardiovascular Exam: +S1, +S2 - GI/Abdominal Exam GI & Abdominal Exam: Normal Bowel Sounds, Soft - Extremities Exam Additional comments: L knee: mild swelling, no lesions diffuse anterior tenderness ROM restricted 2nd to fx short leg cast in place sensation intact SP/DP/TN motor intact EHL/FHL 2 sec cap refill all toes R knee: no swelling, no lesions no tenderness FROM no pain sensation intact SP/DP/TN motor intact EHL/FHL/G/TA/HS/Q pedal pulses intact comps soft NT - Neurological Exam Neurological exam: Alert, Oriented x3 - Psychiatric Exam Psychiatric exam: Normal Affect, Normal Mood - Skin Skin Exam: Normal Color, Warm Results - Vital Signs Recent Vital Signs: Last Vital Signs Temp 98.5 F 01/22/18 08:46 Pulse 69 01/22/18 08:46 Resp 19 01/22/18 08:46 BP 133/72 01/22/18 08:46 Pulse Ox 97 01/22/18 08:46 - Labs Result Diagrams: 01/22/18 05:45 01/22/18 05:45 Labs: Laboratory Results - last 24 hr 01/21/18 01/21/18 01/21/18 20:17 20:17 21:05 WBC 7.0 RBC 3.91 Hgb 12.4 Hct 36.4 MCV 93.1 MCH 31.6 H MCHC 33.9 RDW 14.7 H Plt Count 257 MPV 9.4 Neut % (Auto) 80.3 H Lymph % (Auto) 12.7 L Crockett % (Auto) 5.7 Eos % (Auto) 0.8 Baso % (Auto) 0.5 Neut # (Auto) 5.6 Lymph # (Auto) 0.9 L Crockett # (Auto) 0.4 Eos # (Auto) 0.1 Baso # (Auto) 0.0 PT 11.5 INR 1.0 APTT 27.0 Sodium 139 Potassium 4.1 Chloride 105 Carbon Dioxide 27 Anion Gap 11 BUN 17 Creatinine 1.0 Est GFR ( Amer) > 60 Est GFR (Non-Af Amer) 54 Random Glucose 109 H Calcium 9.5 Total Bilirubin 0.4 AST 42 H ALT 31 Alkaline Phosphatase 107 Total Protein 7.4 Albumin 4.0 Globulin 3.4 Albumin/Globulin Ratio 1.2 Lipase 131 01/22/18 01/22/18 05:45 05:45 WBC 4.9 RBC 3.50 L Hgb 11.0 L Hct 32.8 L MCV 93.7 MCH 31.5 H MCHC 33.6 RDW 14.5 Plt Count 230 MPV 8.8 Neut % (Auto) 60.8 Lymph % (Auto) 26.5 Crockett % (Auto) 10.8 H Eos % (Auto) 1.4 Baso % (Auto) 0.5 Neut # (Auto) 3.0 Lymph # (Auto) 1.3 Crockett # (Auto) 0.5 Eos # (Auto) 0.1 Baso # (Auto) 0.0 PT INR APTT Sodium 142 Potassium 3.8 Chloride 108 H Carbon Dioxide 33 H Anion Gap 5 L BUN 16 Creatinine 1.0 Est GFR ( Amer) > 60 Est GFR (Non-Af Amer) 54 Random Glucose 117 H Calcium 8.9 Total Bilirubin 0.3 AST 29 ALT 27 Alkaline Phosphatase 86 Total Protein 6.3 Albumin 3.4 L Globulin 3.0 Albumin/Globulin Ratio 1.1 Lipase Assessment & Plan (1) Patella fracture Assessment and Plan: -Nonoperative treatment is recommended -L knee is to be strictly immobilized within knee immobilizer, please exercise caution with podiatry manipulation during surgery this keeping knee in full extension -PT/OT NWB LLE -DVT ppx -orthopedically stable -will follow patient -above d/w Dr. Thomas in agreement Status: Acute - Date & Time Date: 01/22/18 Time: 08:00 Radiology Interpretation - Bliss Press Operator Bliss Press Operator:: Radiologist - Study type Study type:: CT - Notes: Notes:: Accession No. : [id number] Patient Name / ID : K[facility] WALDROP [id number] Exam Date : 01/21/2018 20:03:01 ( Approved ) Study Comment : Sex / Age : F / 72Y Creator : dorothy lopez Dictator : Ge Blanco MD Marine Fitter : Painter And Grader Cork : Ge Blanco MD Approver2 : Report Date : 01/21/2018 20:33:18 My Comment : Date of service: 01/21/2018 PROCEDURE: Left Knee Radiographs. HISTORY: Pain. COMPARISON: None. FINDINGS: BONES: There is a transverse fracture through the inferior patella, likely articular. No dislocation or subluxation JOINTS: No dislocation or subluxation. Degenerative joint space narrowing is appreciate the medial lateral femorotibial compartments as well as the patellofemoral articulation. Soft tissue calcifications are identified possibly in the medial and lateral menisci. JOINT EFFUSION: None. OTHER FINDINGS: None. IMPRESSION: Transverse fracture through the inferior patella is identified, likely articular. No subluxation or dislocation. Degenerative changes appear moderate in severity. - Radiology Interpretation #2 Interpretation: Accession No. : [id number] Patient Name / ID : KA[facility] WALDROP [id number] Exam Date : 01/21/2018 23:17:14 ( Approved ) Study Comment : Sex / Age : F / Y Creator : Ge Blanco MD Dictator : Ge Blanco MD Marine Fitter : Painter And Grader Cork : Ge Blanco MD Approver2 : Report Date : 01/22/2018 11:34:44 My Comment : Date of service: 01/21/2018 PROCEDURE: LEFT LOWER EXTREMITY CT WITHOUT CONTRAST HISTORY: LEFT knee and ankle fracture COMPARISON: Leg and ankle radiographs 01/21/2018. TECHNIQUE: A volumetric CT acquisition was performed through the left knee terminating at the midfoot without intravenous contrast. Reformatted dataset have been provided in multiple planes as well. Contrast Dose: None Radiation dose:Total exam DLP = 687.42 mGy-cm. This CT exam was performed using one or more of the following dose reduction techniques: Automated exposure control, adjustment of the mA and/or kV according to patient size, and/or use of iterative reconstruction technique. FINDINGS: Nondisplaced transverse fracture is reiterated through the inferior patella with mild prepatellar soft tissue edema identified. No underlying bony lesion identified. No subluxation of the patella. The visualized distal femur appears intact. Proximal and mid tibia and fibula are intact without acute fracture. Both the medial lateral malleolar fractures appear slightly distracted laterally toward the left by approximately 2 mm in terms of the medial malleolus and approximately 7.5 mm in terms of the lateral malleolus. The medial mortise measures 5.5 mm with the lateral mortise measuring only 1.5 mm. Limited comminution is seen related to the lateral malleolar fracture with a small fragment difficult to exclude related to the anterior malleolus medially. Punctate fracture fragments are seen related to medial malleolar fracture. A small chip fracture is identified at the lateral portion of the posterior malleolus. Soft tissue edema surrounds the left ankle but predominately medial and lateral. Trace emphysematous changes seen in the anterior ankle soft tissues represent vacuum phenomena from the trauma or penetrating injury. Clinically correlate further. Potential tendinous calcification or avulsion injury at the sustentacular talus and medial aspect of the navicular bone. IMPRESSION: Medial lateral malleolar fracture identified with limited lateral distraction of both major fracture fragments as discussed above. Limited widening of the medial mortise is appreciated and narrowing of the lateral mortise related to fracture fragment distraction as described. No dislocation. Small chip fracture seen related to the posterior malleolus and possibly also separate fracture related to the anterior malleolus. Potential tendinous calcification or avulsion injury at the sustentacular talus and medial aspect of the navicular bone. Transverse fracture is noted at the inferior patella without distraction. Soft tissue edema as discussed above. Trace related subcutaneous fat is noted anteriorly and could reflect vacuum related phenomena related to trauma or penetrating injury. Clinically correlate. Concordant preliminary report from [facility], 01/22/2018.
--- NOTE | 2018-01-22 14:34 | CP.PCM.PN ---
Subjective - Date & Time of Evaluation Date of Evaluation: 01/22/18 Time of Evaluation: 14:21 - Subjective Subjective: Podiatry progress note for Dr. Demarco 72 y/o female seen and evaluated at bedside. Patient is resting comfortably and in no acute distress. Patient was made aware her surgery for the left ankle will be on 01/25/18 at 9:15 AM. Patient's daughter has also been made aware. Both are in agreement. Patient states the pain is controlled with Percocet. Patient was in the cast C/D/I and with a knee brace. Objective - Vital Signs/Intake and Output Vital Signs (last 24 hours): Temp Pulse Resp BP Pulse Ox 98.5 F 69 19 133/72 100 01/22/18 08:46 01/22/18 08:46 01/22/18 08:46 01/22/18 08:46 01/22/18 12:25 - Medications Medications: Current Medications Acetaminophen (Tylenol 325mg Tab) 650 mg PO Q6 PRN PRN Reason: Pain, Mild (1-3) Atorvastatin Calcium (Lipitor) 40 mg PO DAILY NICK Dicyclomine HCl (Bentyl) 20 mg PO TID PRN PRN Reason: Abdominal pain Enoxaparin Sodium (Lovenox) 40 mg SC DAILY NICK PRN Reason: Protocol Famotidine (Pepcid) 40 mg PO HS NICK Home Med (Valsartan/Hydrochlorothiazide [Diovan Hct 160-12.5 Mg Tab]) 1 mg PO DAILY NICK Ibuprofen (Motrin Tab) 400 mg PO Q6H PRN PRN Reason: Pain, moderate (4-7) Last Admin: 01/22/18 11:04 Dose: 400 mg Oxycodone/Acetaminophen (Percocet 5/325 Mg Tab) 1 tab PO Q4 PRN PRN Reason: Pain, severe (8-10) Stop: 01/24/18 23:39 Last Admin: 01/22/18 13:37 Dose: 1 tab - Labs Labs: 01/22/18 05:45 01/22/18 05:45 PT 11.5 Seconds (9.8-13.1) 01/21/18 21:05 INR 1.0 01/21/18 21:05 APTT 27.0 Seconds (25.6-37.1) 01/21/18 21:05 - Constitutional Appears: Well, Non-toxic, No Acute Distress - Head Exam Head Exam: ATRAUMATIC, NORMOCEPHALIC - Extremities Exam Additional comments: Patient in cast- with C/D/I - Neurological Exam Neurological Exam: Alert, Awake, Oriented x3 - Psychiatric Exam Psychiatric exam: Normal Affect, Normal Mood Assessment and Plan - Assessment and Plan (Free Text) Assessment: 72 y/o female seen and evaluated at bedside for left ankle bimalleolar fracture Plan: Patient seen and evaluated with Dr. Demarco Patient plan discussed with Dr. Demarco Chart, lab and vitals were reviewed Patient currently in a bi-valved cast Patient will go to the OR on at 9:15 AM for surgery to the left ankle Patient and daughter both agreeable and demonstrated verbal understanding Manager [employer] services were used Patient will require medical clearance for surgery Patient will require cardiac clearance for surgery Patient Lovenox will be held and NPO order will be placed the night before Patient will be evaluated by Physical Therapy as patient will be NWB after surge ry Orthopedic surgery will follow patient regarding patellar fracture Continue pain management and Lovenox Podiatry will continue to follow patient while in house
[2018-01-23 06:20] LABS: HEMOGLOBIN 10.4 g/dL (12.0-16.0); MEAN CELL VOLUME 93.3 fl (81.0-99.0); MEAN CORPUSCULAR HEMOGLOBIN 31.6 pg (27.0-31.0); MEAN CORPUSCULAR HGB CONC 33.8 g/dL (33.0-37.0); RBC 3.3 Mil/uL (3.80-5.20); RED CELL DISTRIBUTION WIDTH 14.7 % (11.5-14.5); WHITE BLOOD COUNT 4.1 K/uL (4.8-10.8)
--- NOTE | 2018-01-23 06:33 | CP.PCM.CON ---
History of Present Illness - History of Present Illness History of Present Illness: 72 y/o female admitted with Fx Left ankle and patella 2* to trip and fall Surgery scheduled for Pt denies chest pain / SOB / LOO / palpitations EKG: Normal sinus Rhythm PMH: HTN, HLD, diverticulosis Osteoarthritis Past Patient History - Infectious Disease Hx of Infectious Diseases: None - Past Medical History & Family History Past Medical History?: Yes - Past Social History Smoking Status: Never Smoked Alcohol: None Drugs: Denies - CARDIAC Hx Hypercholesterolemia: Yes Hx Hypertension: Yes - PULMONARY Hx Respiratory Disorders: No - NEUROLOGICAL Hx Neurological Disorder: No - HEENT Hx HEENT Problems: No - RENAL Hx Chronic Kidney Disease: No - ENDOCRINE/METABOLIC Hx Endocrine Disorders: No - HEMATOLOGICAL/ONCOLOGICAL Hx Blood Disorders: No - INTEGUMENTARY Hx Dermatological Problems: No - MUSCULOSKELETAL/RHEUMATOLOGICAL Hx Arthritis: Yes Hx Osteoporosis: Yes - GASTROINTESTINAL Hx Gastrointestinal Disorders: Yes Other/Comment: Diverticulosis - GENITOURINARY/GYNECOLOGICAL Hx Genitourinary Disorders: No - PSYCHIATRIC Hx Psychophysiologic Disorder: No Hx Substance Use: No - SURGICAL HISTORY Hx Section: Yes - ANESTHESIA Hx Anesthesia: Yes Hx Anesthesia Reactions: No Hx Malignant Hyperthermia: No Has any member of the family had a problem w/ anesthesia?: No Meds Allergies/Adverse Reactions: Allergies Allergy/AdvReac Type Severity Reaction Status Date / Time No Known Allergies Allergy Verified 01/21/18 18:05 - Medications Medications: Current Medications Acetaminophen (Tylenol 325mg Tab) 650 mg PO Q6 PRN PRN Reason: Pain, Mild (1-3) Atorvastatin Calcium (Lipitor) 40 mg PO DAILY [facility] Dicyclomine HCl (Bentyl) 20 mg PO TID PRN PRN Reason: Abdominal pain Enoxaparin Sodium (Lovenox) 40 mg SC DAILY [facility]; Protocol Famotidine (Pepcid) 40 mg PO HS [facility] Last Admin: 01/22/18 21:23 Dose: 40 mg HCTZ/Losartan Potassium (Hyzaar 12.5 Mg-50 Mg) 1 tab PO DAILY [facility] Ibuprofen (Motrin Tab) 400 mg PO Q6H PRN PRN Reason: Pain, moderate (4-7) Last Admin: 01/22/18 11:04 Dose: 400 mg Oxycodone/Acetaminophen (Percocet 5/325 Mg Tab) 1 tab PO Q4 PRN PRN Reason: Pain, severe (8-10) Stop: 01/24/18 23:39 Last Admin: 01/22/18 20:04 Dose: 1 tab Physical Exam - Constitutional Appears: Well - Head Exam Head Exam: NORMAL INSPECTION - Eye Exam Eye Exam: Normal appearance - ENT Exam ENT Exam: Normal Exam - Neck Exam Neck exam: Positive for: Normal Inspection - Respiratory Exam Respiratory Exam: NORMAL BREATHING PATTERN - Cardiovascular Exam Cardiovascular Exam: REGULAR RHYTHM Results - Vital Signs Recent Vital Signs: Last Vital Signs Temp 98.1 F 01/23/18 00:00 Pulse 69 01/23/18 00:00 Resp 19 01/23/18 00:00 BP 125/67 01/23/18 00:00 Pulse Ox 99 01/23/18 00:00 - Labs Result Diagrams: 01/23/18 06:00 01/23/18 06:00 Labs: Laboratory Results - last 24 hr 01/22/18 01/22/18 05:45 05:45 WBC 4.9 RBC 3.50 L Hgb 11.0 L Hct 32.8 L MCV 93.7 MCH 31.5 H MCHC 33.6 RDW 14.5 Plt Count 230 MPV 8.8 Neut % (Auto) 60.8 Lymph % (Auto) 26.5 [place] % (Auto) 10.8 H Eos % (Auto) 1.4 Baso % (Auto) 0.5 Neut # (Auto) 3.0 Lymph # (Auto) 1.3 [place] # (Auto) 0.5 Eos # (Auto) 0.1 Baso # (Auto) 0.0 Sodium 142 Potassium 3.8 Chloride 108 H Carbon Dioxide 33 H Anion Gap 5 L BUN 16 Creatinine 1.0 Est GFR ( Amer) > 60 Est GFR (Non-Af Amer) 54 Random Glucose 117 H Calcium 8.9 Total Bilirubin 0.3 AST 29 ALT 27 Alkaline Phosphatase 86 Total Protein 6.3 Albumin 3.4 L Globulin 3.0 Albumin/Globulin Ratio 1.1 Assessment & Plan (1) Patella fracture Status: Acute (2) Trimalleolar fracture of ankle, closed Assessment and Plan: The patient is cleared for surgery Status: Acute (3) Diverticulosis Status: Chronic (4) HTN (hypertension) Status: Chronic
[2018-01-23 06:38] LABS: BLOOD UREA NITROGEN 14 mg/dl (7-17); CALCIUM 8.8 mg/dL (8.4-10.2); GFR NON-AFRICAN AMERICAN 54
[2018-01-23] MEDS: Oxycodone/Acetaminophen 5/325 mg Tab PO PRN (08:19)
[2018-01-23] MEDS: HCTZ/Losartan 12.5/50 Tab PO SCH (08:53)
[2018-01-23] MEDS: Enoxaparin 40 mg Syringe SC SCH (08:53)
--- NOTE | 2018-01-23 09:22 | CP.PCM.PN ---
<JensenBird - Last Filed: 01/23/18 09:49> Subjective - Date & Time of Evaluation Date of Evaluation: 01/23/18 Time of Evaluation: 08:21 - Subjective Subjective: Patient seen and examined this morning c/o pain on her L leg, nurse gave Percocet w/o improvement, otherwise no acute overnight events. She denies abdominal pain at this time, last BM yesterday in the morning. Afebrile, no chest pain, palpitations, sob, no urinary symptoms, diarrhea or constipation. Objective - Vital Signs/Intake and Output Vital Signs (last 24 hours): Temp Pulse Resp BP Pulse Ox 99.9 F H 76 19 123/73 96 01/23/18 08:36 01/23/18 08:36 01/23/18 08:36 01/23/18 08:36 01/23/18 08:36 - Medications Medications: Current Medications Acetaminophen (Tylenol 325mg Tab) 650 mg PO Q6 PRN PRN Reason: Pain, Mild (1-3) Atorvastatin Calcium (Lipitor) 40 mg PO DAILY [facility] Dicyclomine HCl (Bentyl) 20 mg PO TID PRN PRN Reason: Abdominal pain Enoxaparin Sodium (Lovenox) 40 mg SC DAILY [facility]; Protocol Famotidine (Pepcid) 40 mg PO HS [facility] Last Admin: 01/22/18 21:23 Dose: 40 mg HCTZ/Losartan Potassium (Hyzaar 12.5 Mg-50 Mg) 1 tab PO DAILY [facility] Ibuprofen (Motrin Tab) 400 mg PO Q6H PRN PRN Reason: Pain, moderate (4-7) Last Admin: 01/22/18 11:04 Dose: 400 mg Oxycodone/Acetaminophen (Percocet 5/325 Mg Tab) 1 tab PO Q4 PRN PRN Reason: Pain, severe (8-10) Stop: 01/24/18 23:39 Last Admin: 01/23/18 08:19 Dose: 1 tab - Labs Labs: 01/23/18 06:00 01/23/18 06:00 PT 11.5 Seconds (9.8-13.1) 01/21/18 21:05 INR 1.0 01/21/18 21:05 APTT 27.0 Seconds (25.6-37.1) 01/21/18 21:05 - Constitutional Appears: No Acute Distress - Head Exam Head Exam: NORMAL INSPECTION - Eye Exam Eye Exam: EOMI, PERRL - Respiratory Exam Respiratory Exam: Clear to Ausculation Bilateral. absent: Rales, Wheezes - Cardiovascular Exam Cardiovascular Exam: REGULAR RHYTHM, +S1, +S2 - GI/Abdominal Exam GI & Abdominal Exam: Soft, Normal Bowel Sounds. absent: Tenderness - Extremities Exam Extremities Exam: absent: Calf Tenderness, Pedal Edema Additional comments: Knee immovilizer noted on L leg, toes warm to touch, able to move them - Neurological Exam Neurological Exam: Alert, Awake, Oriented x3 - Psychiatric Exam Psychiatric exam: Normal Mood - Skin Skin Exam: Dry, Warm Assessment and Plan - Assessment and Plan (Free Text) Assessment: 72 y/o woman w/ PMH of HTN, HLD, diverticulosis and Osteoarthritis admitted w/ left ankle fracture and patellar fracture s/p fall. Left ankle fracture (trimalleolar) - s/p fall - CT Lower Extremity: Medial lateral malleolar fracture with limited lateral distraction of both major fracture fragments. No dislocation. Small chip fracture seen related to the posterior malleolus and possibly also separate fracture related to the anterior malleolus. Transverse fracture is noted at the inferior patella without distraction. Soft tissue edema. - s/p close reduction in ED - motrin 600 mg and percocet for pain management - IVF D5 NS @ 100 mL/hr - podiatry consulted, Dr. Demarco - Scheduled to OR on - Echo and Cardiology consult for preop clearance, Pending Patellar fracture - Knee XR: (preliminary) patellar fracture - Orthtopedic consulted, recommeds appreciated. - No surgical intervention, knee immovilizer Slight H/H drop - Hgb from 12.2 to 10.1 - likely dilutional - serial cbc HTN - stable BP - monitor for acute changes h/o Diverticulosis - mild abd pain - c/ Bentyl TID prn Prophylactic measures - DVT: lovenox 40 mg SC daily <Josiane Loco - Last Filed: 01/23/18 16:26> Objective - Vital Signs/Intake and Output Vital Signs (last 24 hours): Temp Pulse Resp BP Pulse Ox 98.2 F 69 18 144/73 98 01/23/18 12:00 01/23/18 15:28 01/23/18 12:00 01/23/18 12:00 01/23/18 15:28 - Medications Medications: Current Medications Acetaminophen (Tylenol 325mg Tab) 650 mg PO Q6 PRN PRN Reason: Pain, Mild (1-3) Atorvastatin Calcium (Lipitor) 40 mg PO DAILY [facility] Last Admin: 01/23/18 08:53 Dose: 40 mg Dicyclomine HCl (Bentyl) 20 mg PO TID PRN PRN Reason: Abdominal pain Enoxaparin Sodium (Lovenox) 40 mg SC DAILY [facility]; Protocol Last Admin: 01/23/18 08:53 Dose: 40 mg Famotidine (Pepcid) 40 mg PO HS [facility] Last Admin: 01/22/18 21:23 Dose: 40 mg HCTZ/Losartan Potassium (Hyzaar 12.5 Mg-50 Mg) 1 tab PO DAILY [facility] Last Admin: 01/23/18 08:53 Dose: 1 tab Ibuprofen (Motrin Tab) 400 mg PO Q6H PRN PRN Reason: Pain, moderate (4-7) Last Admin: 01/22/18 11:04 Dose: 400 mg Oxycodone/Acetaminophen (Percocet 5/325 Mg Tab) 1 tab PO Q4 PRN PRN Reason: Pain, severe (8-10) Stop: 01/24/18 23:39 Last Admin: 01/23/18 08:19 Dose: 1 tab - Labs Labs: 01/23/18 06:00 01/23/18 06:00 PT 11.5 Seconds (9.8-13.1) 01/21/18 21:05 INR 1.0 01/21/18 21:05 APTT 27.0 Seconds (25.6-37.1) 01/21/18 21:05 Attending/Attestation - Attestation I have personally seen and examined this patient.: Yes I have fully participated in the care of the patient.: Yes I have reviewed all pertinent clinical information, including history, physical exam and plan: Yes
--- NOTE | 2018-01-23 09:40 | CP.PCM.PN ---
Subjective - Date & Time of Evaluation Date of Evaluation: 01/23/18 Time of Evaluation: 09:37 - Subjective Subjective: Podiatry progress note for Dr. Demarco 72 y/o female seen and evaluated at bedside. Patient is resting comfortably and in no acute distress. Patient was made aware her surgery for the left ankle will be on 01/25/18 at 9:15 AM. Patient's daughter has also been made aware. Both are in agreement. Patient states the pain is controlled with Percocet. Patient was in the cast C/D/I and with a knee brace. Objective - Vital Signs/Intake and Output Vital Signs (last 24 hours): Temp Pulse Resp BP Pulse Ox 99.9 F H 76 19 123/73 96 01/23/18 08:36 01/23/18 08:36 01/23/18 08:36 01/23/18 08:36 01/23/18 08:36 - Medications Medications: Current Medications Acetaminophen (Tylenol 325mg Tab) 650 mg PO Q6 PRN PRN Reason: Pain, Mild (1-3) Atorvastatin Calcium (Lipitor) 40 mg PO DAILY [facility] Dicyclomine HCl (Bentyl) 20 mg PO TID PRN PRN Reason: Abdominal pain Enoxaparin Sodium (Lovenox) 40 mg SC DAILY [facility]; Protocol Famotidine (Pepcid) 40 mg PO HS [facility] Last Admin: 01/22/18 21:23 Dose: 40 mg HCTZ/Losartan Potassium (Hyzaar 12.5 Mg-50 Mg) 1 tab PO DAILY [facility] Ibuprofen (Motrin Tab) 400 mg PO Q6H PRN PRN Reason: Pain, moderate (4-7) Last Admin: 01/22/18 11:04 Dose: 400 mg Oxycodone/Acetaminophen (Percocet 5/325 Mg Tab) 1 tab PO Q4 PRN PRN Reason: Pain, severe (8-10) Stop: 01/24/18 23:39 Last Admin: 01/23/18 08:19 Dose: 1 tab - Labs Labs: 01/23/18 06:00 01/23/18 06:00 PT 11.5 Seconds (9.8-13.1) 01/21/18 21:05 INR 1.0 01/21/18 21:05 APTT 27.0 Seconds (25.6-37.1) 01/21/18 21:05 - Constitutional Appears: Well, Non-toxic, No Acute Distress - Head Exam Head Exam: ATRAUMATIC, NORMOCEPHALIC - Extremities Exam Additional comments: Patient in cast- with C/D/I - Neurological Exam Neurological Exam: Alert, Awake, Oriented x3 - Psychiatric Exam Psychiatric exam: Normal Affect, Normal Mood Assessment and Plan - Assessment and Plan (Free Text) Assessment: 72 y/o female seen and evaluated at bedside for left ankle bimalleolar fracture Plan: Patient seen and evaluated with Dr. Demarco Patient plan discussed with Dr. Demarco Chart, lab and vitals were reviewed Patient currently in a bi-valved cast Patient will go to the OR on at 9:15 AM for surgery to the left ankle Patient and daughter both agreeable and demonstrated verbal understanding Instrument Technician services were used Patient will require medical clearance for surgery Patient will require cardiac clearance for surgery Patient Lovenox will be held and NPO order will be placed the night before Patient will be evaluated by Physical Therapy as patient will be NWB after surgery Orthopedic surgery will follow patient regarding patellar fracture Continue pain management and Lovenox Podiatry will continue to follow patient while in house
--- NOTE | 2018-01-23 11:21 | CP.PCM.PN ---
Subjective - Date & Time of Evaluation Date of Evaluation: 01/23/18 Time of Evaluation: 07:30 - Subjective Subjective: Patient seen and examined at bedside comfortable. Pain well controlled at knee, moderate pain at ankle. No new complaints. Denies CP/SOB/N/V/D/fever. Objective - Vital Signs/Intake and Output Vital Signs (last 24 hours): Temp Pulse Resp BP Pulse Ox 99.9 F H 76 19 123/73 96 01/23/18 08:36 01/23/18 08:36 01/23/18 08:36 01/23/18 08:36 01/23/18 08:36 - Medications Medications: Current Medications Acetaminophen (Tylenol 325mg Tab) 650 mg PO Q6 PRN PRN Reason: Pain, Mild (1-3) Atorvastatin Calcium (Lipitor) 40 mg PO DAILY [facility] Last Admin: 01/23/18 08:53 Dose: 40 mg Dicyclomine HCl (Bentyl) 20 mg PO TID PRN PRN Reason: Abdominal pain Enoxaparin Sodium (Lovenox) 40 mg SC DAILY [facility]; Protocol Last Admin: 01/23/18 08:53 Dose: 40 mg Famotidine (Pepcid) 40 mg PO HS [facility] Last Admin: 01/22/18 21:23 Dose: 40 mg HCTZ/Losartan Potassium (Hyzaar 12.5 Mg-50 Mg) 1 tab PO DAILY [facility] Last Admin: 01/23/18 08:53 Dose: 1 tab Ibuprofen (Motrin Tab) 400 mg PO Q6H PRN PRN Reason: Pain, moderate (4-7) Last Admin: 01/22/18 11:04 Dose: 400 mg Oxycodone/Acetaminophen (Percocet 5/325 Mg Tab) 1 tab PO Q4 PRN PRN Reason: Pain, severe (8-10) Stop: 01/24/18 23:39 Last Admin: 01/23/18 08:19 Dose: 1 tab - Labs Labs: 01/23/18 06:00 01/23/18 06:00 PT 11.5 Seconds (9.8-13.1) 01/21/18 21:05 INR 1.0 01/21/18 21:05 APTT 27.0 Seconds (25.6-37.1) 01/21/18 21:05 - Extremities Exam Additional comments: L knee: mild swelling, no lesions diffuse anterior tenderness ROM restricted 2nd to fx short leg cast in place sensation intact SP/DP/TN motor intact EHL/FHL 2 sec cap refill all toes Assessment and Plan (1) Patella fracture Assessment & Plan: -Continue Nonoperative treatment -L knee strict immobilization within knee immobilizer, keep in extension while in OR -PT/OT NWB LLE -DVT ppx -orthopedically stable -will continue to follow -above d/w Dr. Thomas in agreement Status: Acute
--- NOTE | 2018-01-23 16:28 | CARD ---
APPROVED REPORT Date of service: 01/23/2018 EXAM: Two-dimensional and M-mode echocardiogram with Doppler and color Doppler. Other Information Quality : GoodRhythm : NSR INDICATION Pre-Op 2D DIMENSIONS IVSd0.89 (0.7-1.1cm)LVDd3.13 (3.9-5.9cm) LVOT Diameter1.64 (1.8-2.4cm)PWd1.01 (0.7-1.1cm) IVSs1.12 (0.8-1.2cm)LVDs2.14 (2.5-4.0cm) FS (%) 31.7 %PWs1.12 (0.8-1.2cm) M-Mode DIMENSIONS Left Atrium (MM)4.30 (2.5-4.0cm)IVSd1.30 (0.7-1.1cm) Aortic Root2.76 (2.2-3.7cm)LVDd4.30 (4.0-5.6cm) Aortic Cusp Exc.1.85 (1.5-2.0cm)PWd0.97 (0.7-1.1cm) IVSs1.74 cmFS (%) 59 % LVDs1.76 (2.0-3.8cm)PWs1.68 cm Aortic Valve AoV Peak Guecqogr684.5cm/sAoV VTI28.1cmAO Peak GR.7mmHg LVOT Peak Qhaoielk735.9cm/sLVOT VTI23.43cmAO Mean GR.4mmHg CHINEDU (VMAX)1.85eh0WQY (VTI)1.10cm2 Mitral Valve MV E Xqzozouo39.6cm/sMV DECEL XEZN374guAE A Ejvshctv174.1cm/s MV SDT77yhW/A ratio0.8MVA (PHT)2.56cm2 TDI Lateral E' Peak V8.88cm/sMedial E' Peak V7.66cm/sE/Lateral E'9.3 E/Medial E'10.8 Pulmonary Valve PV Peak Ionkhvln805.2cm/s Tricuspid Valve TR Peak Qioieaol372pq/sRAP MYJQPVFE97rlRmJR Peak Gr.28mmHg BLGF11qfGo LEFT VENTRICLE The left ventricle is normal size. There is normal left ventricular wall thickness. The left ventricular systolic function is normal. The estimated ejection fraction is 60% No regional wall motion abnormalities noted.. Transmitral Doppler flow pattern is Grade I-abnormal relaxation pattern. No left ventricle thrombus noted on this study. There is no ventricular septal defect visualized. There is no mass noted in the left ventricle. RIGHT VENTRICLE The right ventricle is normal size. There is normal right ventricular wall thickness. The right ventricular systolic function is normal. ATRIA The left atrium size is mildly dilated The right atrium size is normal. The interatrial septum is intact with no evidence for an atrial septal defect. AORTIC VALVE The aortic valve is normal in structure. there is mild sclerosis No aortic regurgitation is present. There is no aortic valvular stenosis. MITRAL VALVE The mitral valve is normal in structure. There is no mitral valve stenosis. There is mild mitral valve regurgitation noted. TRICUSPID VALVE The tricuspid valve is normal in structure. There is mild tricuspid valve regurgitation noted. PASP mildly elevated PULMONIC VALVE The pulmonary valve is normal in structure. There is no pulmonic valvular regurgitation. GREAT VESSELS The aortic root is normal in size. The ascending aorta is normal in size. The pulmonary artery is normal. The IVC is normal in size and collapses >50% with inspiration. PERICARDIAL EFFUSION There is no pericardial effusion. <Conclusion> Mild mitral insufficiency Mild TR with mild pulmonary hypertension Dilated left atrium Normal LV systolic function with doppler hemodynamics consistent with abnormal relaxation The estimated ejection fraction is 60%
[2018-01-24 06:30] LABS: BASO % 0.5 % (0.0-2.0); EOS # 0.1 K/uL (0.0-0.7); EOS % 2.2 % (0.0-4.0); HEMOGLOBIN 11.3 g/dL (12.0-16.0); LYMPH # 1.8 K/uL (1.0-4.3); LYMPH % 36.3 % (20.0-40.0); MEAN CELL VOLUME 93.1 fl (81.0-99.0); MEAN CORPUSCULAR HEMOGLOBIN 31.4 pg (27.0-31.0); MEAN CORPUSCULAR HGB CONC 33.7 g/dL (33.0-37.0); MEAN PLATELET VOLUME 9.3 fl (7.2-11.7); MONO # 0.7 K/uL (0.0-0.8); MONO % 14.2 % (0.0-10.0); NEUT # 2.3 K/uL (1.8-7.0); NEUT % 46.8 % (50.0-75.0); NRBC % 0.1 % (0.0-0.0); RBC 3.59 Mil/uL (3.80-5.20); RED CELL DISTRIBUTION WIDTH 14.6 % (11.5-14.5)
[2018-01-24 06:53] LABS: ALB/GLOB RATIO 1.1 (1.0-2.1); ALBUMIN 3.5 g/dL (3.5-5.0); CALCIUM 9.2 mg/dL (8.4-10.2)
--- NOTE | 2018-01-24 06:53 | CP.PCM.PN ---
<Bird Styles - Last Filed: 01/24/18 10:00> Subjective - Date & Time of Evaluation Date of Evaluation: 01/24/18 Time of Evaluation: 06:53 - Subjective Subjective: Patient seen and examined at beside, reports feeling better, less pain. Reports soft BM yesterday but no abdominal pain. Afebrile. Cleared by Cardio for surgery tomorrow. Objective - Vital Signs/Intake and Output Vital Signs (last 24 hours): Temp Pulse Resp BP Pulse Ox 98.2 F 70 18 118/64 96 01/24/18 00:00 01/24/18 00:00 01/24/18 00:00 01/24/18 00:00 01/24/18 00:00 - Medications Medications: Current Medications Acetaminophen (Tylenol 325mg Tab) 650 mg PO Q6 PRN PRN Reason: Pain, Mild (1-3) Atorvastatin Calcium (Lipitor) 40 mg PO DAILY [facility] Last Admin: 01/23/18 08:53 Dose: 40 mg Dicyclomine HCl (Bentyl) 20 mg PO TID PRN PRN Reason: Abdominal pain Last Admin: 01/23/18 18:33 Dose: 20 mg Enoxaparin Sodium (Lovenox) 40 mg SC DAILY [facility]; Protocol Last Admin: 01/23/18 08:53 Dose: 40 mg Famotidine (Pepcid) 40 mg PO HS [facility] Last Admin: 01/23/18 21:10 Dose: 40 mg HCTZ/Losartan Potassium (Hyzaar 12.5 Mg-50 Mg) 1 tab PO DAILY [facility] Last Admin: 01/23/18 08:53 Dose: 1 tab Ibuprofen (Motrin Tab) 400 mg PO Q6H PRN PRN Reason: Pain, moderate (4-7) Last Admin: 01/22/18 11:04 Dose: 400 mg Oxycodone/Acetaminophen (Percocet 5/325 Mg Tab) 1 tab PO Q4 PRN PRN Reason: Pain, severe (8-10) Stop: 01/24/18 23:39 Last Admin: 01/23/18 08:19 Dose: 1 tab - Labs Labs: 01/24/18 05:40 01/24/18 05:40 PT 11.5 Seconds (9.8-13.1) 01/21/18 21:05 INR 1.0 01/21/18 21:05 APTT 27.0 Seconds (25.6-37.1) 01/21/18 21:05 - Constitutional Appears: No Acute Distress - Head Exam Head Exam: NORMAL INSPECTION - Respiratory Exam Respiratory Exam: Clear to Ausculation Bilateral. absent: Rales, Wheezes - Cardiovascular Exam Cardiovascular Exam: REGULAR RHYTHM, +S1, +S2 - GI/Abdominal Exam GI & Abdominal Exam: Soft, Normal Bowel Sounds. absent: Distended, Tenderness - Extremities Exam Extremities Exam: absent: Calf Tenderness, Pedal Edema Additional comments: LUE noted with knee immovilizer, able to move toes, sensation intact in toes. - Neurological Exam Neurological Exam: Alert, Awake, Oriented x3 - Skin Skin Exam: Dry, Warm Assessment and Plan - Assessment and Plan (Free Text) Assessment: 72 y/o woman w/ PMH of HTN, HLD, diverticulosis and Osteoarthritis admitted w/ left ankle fracture and patellar fracture s/p fall. Left ankle fracture (trimalleolar) - s/p fall - CT Lower Extremity: Medial lateral malleolar fracture with limited lateral distraction of both major fracture fragments. No dislocation. Small chip fra cture seen related to the posterior malleolus and possibly also separate fracture related to the anterior malleolus. Transverse fracture is noted at the inferior patella without distraction. Soft tissue edema. - s/p close reduction in ED - motrin 600 mg and percocet for pain management - podiatry consulted, Dr. Demarco - Echo: no wall motion abnormality, EF 60% - Cleared by Cardiology - Cleared by IM, pt with low-moderate risk. - Scheduled to OR tomorrow - NPO after midnight - Hold morning Lovenox dose Patellar fracture - Knee XR: (preliminary) patellar fracture - Orthtopedic consulted, recommeds appreciated. - No surgical intervention, knee immovilizer Slight H/H drop - H/H stable - likely dilutional - serial cbc HTN - stable BP - monitor for acute changes h/o Diverticulosis - mild abd pain - c/ Bentyl TID prn Prophylactic measures - DVT: lovenox 40 mg SC daily (hold morning dose) <Josiane Loco - Last Filed: 01/24/18 18:40> Objective - Vital Signs/Intake and Output Vital Signs (last 24 hours): Temp Pulse Resp BP Pulse Ox 98.2 F 66 18 106/66 98 01/24/18 15:57 01/24/18 15:57 01/24/18 15:57 01/24/18 15:57 01/24/18 15:57 - Medications Medications: Current Medications Acetaminophen (Tylenol 325mg Tab) 650 mg PO Q6 PRN PRN Reason: Pain, Mild (1-3) Atorvastatin Calcium (Lipitor) 40 mg PO DAILY [facility] Last Admin: 01/24/18 09:28 Dose: 40 mg Dicyclomine HCl (Bentyl) 20 mg PO TID PRN PRN Reason: Abdominal pain Last Admin: 01/23/18 18:33 Dose: 20 mg Enoxaparin Sodium (Lovenox) 40 mg SC DAILY [facility]; Protocol Last Admin: 01/23/18 08:53 Dose: 40 mg Famotidine (Pepcid) 40 mg PO HS [facility] Last Admin: 01/23/18 21:10 Dose: 40 mg HCTZ/Losartan Potassium (Hyzaar 12.5 Mg-50 Mg) 1 tab PO DAILY [facility] Last Admin: 01/24/18 09:27 Dose: 1 tab Oxycodone/Acetaminophen (Percocet 5/325 Mg Tab) 1 tab PO Q4 PRN PRN Reason: Pain, severe (8-10) Stop: 01/24/18 23:39 Last Admin: 01/24/18 18:05 Dose: 1 tab - Labs Labs: 01/24/18 05:40 01/24/18 05:40 PT 11.5 Seconds (9.8-13.1) 01/21/18 21:05 INR 1.0 01/21/18 21:05 APTT 27.0 Seconds (25.6-37.1) 01/21/18 21:05 Attending/Attestation - Attestation I have personally seen and examined this patient.: Yes I have fully participated in the care of the patient.: Yes I have reviewed all pertinent clinical information, including history, physical exam and plan: Yes
--- NOTE | 2018-01-24 09:19 | CP.PCM.PN ---
Subjective - Date & Time of Evaluation Date of Evaluation: 01/24/18 Time of Evaluation: 07:30 - Subjective Subjective: Patient seen and examined at bedside comfortable. Pain well controlled. No new complaints. Objective - Vital Signs/Intake and Output Vital Signs (last 24 hours): Temp Pulse Resp BP Pulse Ox 98.5 F 63 19 122/72 95 01/24/18 08:28 01/24/18 08:28 01/24/18 08:28 01/24/18 08:28 01/24/18 08:28 - Medications Medications: Current Medications Acetaminophen (Tylenol 325mg Tab) 650 mg PO Q6 PRN PRN Reason: Pain, Mild (1-3) Atorvastatin Calcium (Lipitor) 40 mg PO DAILY [facility] Last Admin: 01/23/18 08:53 Dose: 40 mg Dicyclomine HCl (Bentyl) 20 mg PO TID PRN PRN Reason: Abdominal pain Last Admin: 01/23/18 18:33 Dose: 20 mg Enoxaparin Sodium (Lovenox) 40 mg SC DAILY [facility]; Protocol Last Admin: 01/23/18 08:53 Dose: 40 mg Famotidine (Pepcid) 40 mg PO HS [facility] Last Admin: 01/23/18 21:10 Dose: 40 mg HCTZ/Losartan Potassium (Hyzaar 12.5 Mg-50 Mg) 1 tab PO DAILY [facility] Last Admin: 01/23/18 08:53 Dose: 1 tab Ibuprofen (Motrin Tab) 400 mg PO Q6H PRN PRN Reason: Pain, moderate (4-7) Last Admin: 01/22/18 11:04 Dose: 400 mg Oxycodone/Acetaminophen (Percocet 5/325 Mg Tab) 1 tab PO Q4 PRN PRN Reason: Pain, severe (8-10) Stop: 01/24/18 23:39 Last Admin: 01/23/18 08:19 Dose: 1 tab - Labs Labs: 01/24/18 05:40 01/24/18 05:40 PT 11.5 Seconds (9.8-13.1) 01/21/18 21:05 INR 1.0 01/21/18 21:05 APTT 27.0 Seconds (25.6-37.1) 01/21/18 21:05 - Extremities Exam Additional comments: L knee: knee imm in place mild swelling, no lesions diffuse anterior tenderness ROM restricted 2nd to fx short leg cast in place sensation intact SP/DP/TN motor intact EHL/FHL 2 sec cap refill all toes Assessment and Plan (1) Patella fracture Assessment & Plan: -Nonoperative management -L knee strict immobilization within knee immobilizer, keep in extension while in OR -PT/OT NWB LLE -DVT ppx -orthopedically stable -above d/w Dr. Thomas in agreement Status: Acute
[2018-01-24] MEDS: HCTZ/Losartan 12.5/50 Tab PO SCH (09:27)
[2018-01-24] MEDS ORDERED: Enoxaparin 40 mg Syringe SC STA (10:04)
--- NOTE | 2018-01-24 10:05 | CP.PCM.PN ---
Subjective - Date & Time of Evaluation Date of Evaluation: 01/24/18 Time of Evaluation: 10:02 - Subjective Subjective: Podiatry progress note for Dr. Demarco 72 y/o female seen and evaluated at bedside. Patient is resting comfortably and in no acute distress. Patient was made aware her surgery for the left ankle will be on 01/25/18 at 9:15 AM. Patient's daughter has also been made aware, who was present at bedside. Both are in agreement. Patient states the pain is controlled with Percocet now and pain has decreased. Patient was in the cast C/ D/I and with a knee brace. Patient has no concerns or questions at this time. Denies f/n/v/sob/calf pain. Objective - Vital Signs/Intake and Output Vital Signs (last 24 hours): Temp Pulse Resp BP Pulse Ox 98.5 F 63 19 122/72 95 01/24/18 08:28 01/24/18 08:28 01/24/18 08:28 01/24/18 08:28 01/24/18 08:28 - Medications Medications: Current Medications Acetaminophen (Tylenol 325mg Tab) 650 mg PO Q6 PRN PRN Reason: Pain, Mild (1-3) Atorvastatin Calcium (Lipitor) 40 mg PO DAILY [facility] Last Admin: 01/24/18 09:28 Dose: 40 mg Dicyclomine HCl (Bentyl) 20 mg PO TID PRN PRN Reason: Abdominal pain Last Admin: 01/23/18 18:33 Dose: 20 mg Enoxaparin Sodium (Lovenox) 40 mg SC DAILY [facility]; Protocol Last Admin: 01/23/18 08:53 Dose: 40 mg Famotidine (Pepcid) 40 mg PO HS [facility] Last Admin: 01/23/18 21:10 Dose: 40 mg HCTZ/Losartan Potassium (Hyzaar 12.5 Mg-50 Mg) 1 tab PO DAILY [facility] Last Admin: 01/24/18 09:27 Dose: 1 tab Ibuprofen (Motrin Tab) 400 mg PO Q6H PRN PRN Reason: Pain, moderate (4-7) Last Admin: 01/22/18 11:04 Dose: 400 mg Oxycodone/Acetaminophen (Percocet 5/325 Mg Tab) 1 tab PO Q4 PRN PRN Reason: Pain, severe (8-10) Stop: 01/24/18 23:39 Last Admin: 01/23/18 08:19 Dose: 1 tab - Labs Labs: 01/24/18 05:40 01/24/18 05:40 PT 11.5 Seconds (9.8-13.1) 01/21/18 21:05 INR 1.0 01/21/18 21:05 APTT 27.0 Seconds (25.6-37.1) 01/21/18 21:05 - Constitutional Appears: Well, Non-toxic, No Acute Distress - Head Exam Head Exam: ATRAUMATIC, NORMOCEPHALIC - Extremities Exam Additional comments: Left lower extremity exam: VASC: DP and PT 2/4, CFT < 3 seconds x 5 digit, temperature gradient warm to cool within normal limits, localized non-pitting edema noted to entire left ankle ORTHO: pain with palpation to the entire ankle as well as medial and lateral malleolus, anterior ankle. Pain with passive ankle ROM, limited ankle ROM and MM secondary to guarding NEURO: gross and protective sensation intact DERM: small skin break noted to the anterior ankle, no open lesions, no ecchymosis, skin tugor and texture WNL - Neurological Exam Neurological Exam: Alert, Awake, Oriented x3 - Psychiatric Exam Psychiatric exam: Normal Affect, Normal Mood - Skin Skin Exam: Normal Color Assessment and Plan - Assessment and Plan (Free Text) Assessment: 72 y/o female seen and evaluated at bedside for left ankle bimalleolar fracture Plan: Patient seen and evaluated with Dr. Demarco Patient plan discussed with Dr. Demarco Chart, lab and vitals were reviewed; afebrile absent leukocytosis Patient bi-valved cast removed for sot tissue evaluation and then foot cleased with chloroprep scrub Patient placed in a posterior splint Patient will go to the OR on at 9:15 AM for surgery to the left ankle Patient and daughter both agreeable and demonstrated verbal understanding Patient cleared by internal medicine with low-moderate risk Patient cleared by cardio for surgery tomorrow Patient Lovenox held and NPO order placed Orthopedic surgery will follow patient regarding patellar fracture; no surgical intervention, knee immobilizer. Continue pain management Podiatry will continue to follow patient while in house
[2018-01-24] MEDS: Oxycodone/Acetaminophen 5/325 mg Tab PO PRN (18:05)
[2018-01-25] MEDS ORDERED: Bupivacaine 0.25% Inj(30mL) IJ ONE (06:44)
[2018-01-25] MEDS ORDERED: ceFAZolin 1 GM in Sodium Chloride 0.9% 100 ML IVPB ONE (06:44)
[2018-01-25] MEDS ORDERED: Lidocaine 1% Inj (20ml) IJ ONE (06:44)
[2018-01-25] MEDS ORDERED: Sodium Chloride 0.9% 1,000 ML IV SCH (06:45)
--- NOTE | 2018-01-25 06:48 | CP.PCM.PN ---
Subjective - Date & Time of Evaluation Date of Evaluation: 01/25/18 Time of Evaluation: 06:46 - Subjective Subjective: Podiatry progress note for Dr. Demarco, 72 y/o female patient seen and evaluated on the floor prior to surgery. Patient is aware her surgery is today morning. Patient's NPO status was confirmed with patient and nursing. Patient Lovenox was placed on hold yesterday for today. Patient's splint is in place. Objective - Vital Signs/Intake and Output Vital Signs (last 24 hours): Temp Pulse Resp BP Pulse Ox 99.2 F 63 20 129/79 98 01/24/18 23:52 01/24/18 23:52 01/24/18 23:52 01/24/18 23:52 01/24/18 23:52 - Medications Medications: Current Medications Acetaminophen (Tylenol 325mg Tab) 650 mg PO Q6 PRN PRN Reason: Pain, Mild (1-3) Atorvastatin Calcium (Lipitor) 40 mg PO DAILY [facility] Last Admin: 01/24/18 09:28 Dose: 40 mg Dicyclomine HCl (Bentyl) 20 mg PO TID PRN PRN Reason: Abdominal pain Last Admin: 01/23/18 18:33 Dose: 20 mg Enoxaparin Sodium (Lovenox) 40 mg SC DAILY [facility]; Protocol Last Admin: 01/23/18 08:53 Dose: 40 mg Famotidine (Pepcid) 40 mg PO HS [facility] Last Admin: 01/24/18 21:25 Dose: 40 mg HCTZ/Losartan Potassium (Hyzaar 12.5 Mg-50 Mg) 1 tab PO DAILY [facility] Last Admin: 01/24/18 09:27 Dose: 1 tab - Labs Labs: 01/24/18 05:40 01/24/18 05:40 PT 11.5 Seconds (9.8-13.1) 01/21/18 21:05 INR 1.0 01/21/18 21:05 APTT 27.0 Seconds (25.6-37.1) 01/21/18 21:05 - Constitutional Appears: Well, Non-toxic, No Acute Distress - Head Exam Head Exam: ATRAUMATIC, NORMOCEPHALIC - Extremities Exam Additional comments: Patient dressing C/D/I - Neurological Exam Neurological Exam: Alert, Awake, Oriented x3 - Psychiatric Exam Psychiatric exam: Normal Affect, Normal Mood Assessment and Plan - Assessment and Plan (Free Text) Assessment: 72 y/o female seen and evaluated at bedside for left ankle bimalleolar fracture Plan: Pt was seen and examined in SDS Pt NPO status was confirmed All pre-op testing and clearance in chart Pt has exhausted all conservative treatment at this time and is opting for surgical intervention Pt was explained procedure and post-operative course All pt's questions were answered to satisfaction No guarantees were made Pt understands all risks, benefits and complications of procedure Pt will follow-up with within 1 week of surgery
[2018-01-25 07:11] LABS: HEMOGLOBIN 11.4 g/dL (12.0-16.0); MEAN CELL VOLUME 93.2 fl (81.0-99.0); MEAN CORPUSCULAR HEMOGLOBIN 31.6 pg (27.0-31.0); MEAN CORPUSCULAR HGB CONC 33.9 g/dL (33.0-37.0); RBC 3.62 Mil/uL (3.80-5.20); RED CELL DISTRIBUTION WIDTH 13.7 % (11.5-14.5); WHITE BLOOD COUNT 6.1 K/uL (4.8-10.8)
--- NOTE | 2018-01-25 07:15 | CP.PCM.PN ---
Addendum entered and electronically signed by Bird Styles MD 01/25/18 14:11: Patient seen and examined at bedside s/p ORIF of L ankle fracture, patient tolerated well the procedure under GET and local anesthesia, family at bedside, patient reports feeling well, no pain at this time. Drink some juice. Denies nausea, vomiting, chest or abdominal pain, no sob. Cast and dressing noted C/D/I. PT recommends patient will be beneficial for ISIDRO. Patient will be transferred to a subacute rehab facility at [place] for further care. Arrangements done for tomorrow as per Ruth STRONG. Original Note: <Bird Styles - Last Filed: 01/25/18 11:21> Subjective - Date & Time of Evaluation Date of Evaluation: 01/25/18 Time of Evaluation: 07:15 - Subjective Subjective: Patient seen and examined this morning, patient for surgery today, reports less pain. No acute overnight events. NPO since midnight. Objective - Vital Signs/Intake and Output Vital Signs (last 24 hours): Temp Pulse Resp BP Pulse Ox 99.2 F 63 20 129/79 98 01/24/18 23:52 01/24/18 23:52 01/24/18 23:52 01/24/18 23:52 01/24/18 23:52 - Medications Medications: Current Medications Acetaminophen (Tylenol 325mg Tab) 650 mg PO Q6 PRN PRN Reason: Pain, Mild (1-3) Atorvastatin Calcium (Lipitor) 40 mg PO DAILY [facility] Last Admin: 01/24/18 09:28 Dose: 40 mg Dicyclomine HCl (Bentyl) 20 mg PO TID PRN PRN Reason: Abdominal pain Last Admin: 01/23/18 18:33 Dose: 20 mg Enoxaparin Sodium (Lovenox) 40 mg SC DAILY [facility]; Protocol Last Admin: 01/23/18 08:53 Dose: 40 mg Famotidine (Pepcid) 40 mg PO HS [facility] Last Admin: 01/24/18 21:25 Dose: 40 mg HCTZ/Losartan Potassium (Hyzaar 12.5 Mg-50 Mg) 1 tab PO DAILY [facility] Last Admin: 01/24/18 09:27 Dose: 1 tab Cefazolin Sodium 1 gm/ Sodium (Chloride) 100 mls @ 100 mls/hr IVPB ONCE ONE; Protocol Stop: 01/25/18 07:43 Sodium Chloride (Sodium Chloride 0.9%) 1,000 mls @ 0 mls/hr IV .Q0M [facility] Stop: 01/26/18 06:44 - Labs Labs: 01/24/18 05:40 01/24/18 05:40 PT 11.5 Seconds (9.8-13.1) 01/21/18 21:05 INR 1.0 01/21/18 21:05 APTT 27.0 Seconds (25.6-37.1) 01/21/18 21:05 - Constitutional Appears: No Acute Distress - Head Exam Head Exam: NORMAL INSPECTION - Respiratory Exam Respiratory Exam: Clear to Ausculation Bilateral - Cardiovascular Exam Cardiovascular Exam: REGULAR RHYTHM, +S1, +S2 - GI/Abdominal Exam GI & Abdominal Exam: Soft. absent: Distended, Tenderness - Extremities Exam Extremities Exam: absent: Calf Tenderness, Pedal Edema Additional comments: L Knee immovilizer and cast on place - Neurological Exam Neurological Exam: Alert, Awake, Oriented x3 - Skin Skin Exam: Dry, Warm Assessment and Plan - Assessment and Plan (Free Text) Assessment: 72 y/o woman w/ PMH of HTN, HLD, diverticulosis and Osteoarthritis admitted w/ left ankle fracture and patellar fracture s/p fall. Left ankle fracture (trimalleolar) - s/p fall - For surgery today - motrin 600 mg and percocet for pain management - podiatry consulted, Dr. Demarco - NPO since midnight - Hold morning Lovenox dose Patellar fracture - Knee XR: (preliminary) patellar fracture - Orthtopedic consulted, recommeds appreciated. - No surgical intervention, knee immovilizer Slight H/H drop - H/H stable - likely dilutional - serial cbc HTN - stable BP - monitor for acute changes h/o Diverticulosis - mild abd pain - c/ Bentyl TID prn Prophylactic measures - DVT: lovenox 40 mg SC daily (hold morning dose) <Josiane Loco - Last Filed: 01/25/18 16:21> Objective - Vital Signs/Intake and Output Vital Signs (last 24 hours): Temp Pulse Resp BP Pulse Ox 97.7 F 83 18 109/64 97 01/25/18 16:01 01/25/18 16:01 01/25/18 16:01 01/25/18 16:01 01/25/18 16:01 Intake and Output: 01/25/18 01/25/18 06:59 18:59 Intake Total 500 Balance 500 - Medications Medications: Current Medications Acetaminophen (Tylenol 325mg Tab) 650 mg PO Q6 PRN PRN Reason: Pain, Mild (1-3) Acetaminophen (Tylenol 325mg Tab) 325 mg PO Q4 PRN PRN Reason: Pain, Mild (1-3) Atorvastatin Calcium (Lipitor) 40 mg PO DAILY [facility] Last Admin: 01/25/18 09:52 Dose: Not Given Dicyclomine HCl (Bentyl) 20 mg PO TID PRN PRN Reason: Abdominal pain Last Admin: 01/23/18 18:33 Dose: 20 mg Enoxaparin Sodium (Lovenox) 40 mg SC DAILY [facility]; Protocol Last Admin: 01/23/18 08:53 Dose: 40 mg Famotidine (Pepcid) 40 mg PO HS [facility] Last Admin: 01/24/18 21:25 Dose: 40 mg HCTZ/Losartan Potassium (Hyzaar 12.5 Mg-50 Mg) 1 tab PO DAILY [facility] Last Admin: 01/25/18 09:52 Dose: Not Given Sodium Chloride (Sodium Chloride 0.9%) 1,000 mls @ 0 mls/hr IV .Q0M [facility] Stop: 01/26/18 06:44 Oxycodone/Acetaminophen (Percocet 5/325 Mg Tab) 1 tab PO Q4 PRN PRN Reason: Pain, moderate (4-7) Stop: 01/28/18 10:20 Oxycodone/Acetaminophen (Percocet 5/325 Mg Tab) 2 tab PO Q4 PRN PRN Reason: Pain, severe (8-10) Stop: 01/28/18 10:20 - Labs Labs: 01/25/18 06:51 01/25/18 06:51 PT 11.5 Seconds (9.8-13.1) 01/21/18 21:05 INR 1.0 01/21/18 21:05 APTT 27.0 Seconds (25.6-37.1) 01/21/18 21:05 Attending/Attestation - Attestation I have personally seen and examined this patient.: Yes I have fully participated in the care of the patient.: Yes I have reviewed all pertinent clinical information, including history, physical exam and plan: Yes Notes (Text): Left Ankle Malleolar Fracture s/p ORIF - pt seen post op - cont Pain mgt -DVT proph - PT consult - rec ISIDRO - SW consulted for placement Transverse Fracture Patella - Ortho consulted- recommended non - operative mgt - keep knee Immobilizer - pain mgt
[2018-01-25] MEDS ORDERED: Etomidate 20 mg/10ml Inj IV ONE (07:19)
[2018-01-25] MEDS ORDERED: Succinylcholine 200 mg/10 ml Inj IV ONE (07:20)
[2018-01-25] MEDS ORDERED: Phenylephrine 10 mg/ml Inj ONE (07:23)
[2018-01-25 07:27] LABS: CALCIUM 9.1 mg/dL (8.4-10.2)
[2018-01-25] MEDS ORDERED: Ropivacaine 0.5% 30ML IV ONE (07:29)
[2018-01-25] MEDS ORDERED: Lactated Ringer's 1,000 ML IV ONE (07:45)
[2018-01-25] MEDS ORDERED: Lidocaine 2% MPF (5 ml) Inj ONE (07:47)
[2018-01-25] MEDS ORDERED: Midazolam 2 MG/2 ML VIAL ONE (07:58)
[2018-01-25] MEDS ORDERED: Bupivacaine HCl 0.25% PF (30 ml) Inj IJ ONE ×2 (08:30→10:44)
[2018-01-25] MEDS ORDERED: ePHEDrine 50 mg/ml Inj ONE (08:32)
[2018-01-25] MEDS ORDERED: Rocuronium 10 mg/ml (5 ml) ONE (08:43)
[2018-01-25] MEDS: HCTZ/Losartan 12.5/50 Tab PO SCH (09:52)
[2018-01-25] MEDS ORDERED: Neostigmine 1:1000 (1 mg/ml) Inj ONE (10:08)
[2018-01-25] MEDS ORDERED: Esmolol 100 mg/10ml Inj IV ONE (10:11)
[2018-01-25] MEDS ORDERED: Oxycodone/Acetaminophen 5/325 mg Tab PO PRN (10:19)
[2018-01-25] MEDS ORDERED: HYDROmorphone 0.5 mg/0.5 ml ISec IVP PRN (11:15)
--- NOTE | 2018-01-25 11:15 | PCM.ANESB2 ---
Popliteal Nerve Block - Popliteal Nerve Block Date of Procedure: 01/25/18 Anesthesiologist: lubna Pre-Procedure Diagnosis: left ankle fx Post-Procedure Diagnosis: same Procedure Performed: Popliteal Nerve Block Left - Procedure Popliteal Nerve Block: This procedure was explained to the patient that it is for post-operative pain management. Consent was obtained after a thorough discussion with the patient regarding the benefits and possible complications of local anesthetic block of the sciatic nerve at the popliteal level. The patient was brought to the operating room and standard monitors are applied. Time-out was held with the circulating nurse to confirm the correct surgery and the appropriate block. After applying oxygen by nasal cannula and administering IV Sedation, patient's operative leg was gently raised and supported and the groove in between the biceps femoris and vastus lateralis muscles was carefully palpated. The skin approximately 8cm above the popliteal crease was then marked. The ultrasound transducer was then applied to the posterior thigh approximately 8cm above the popliteal crease in the transverse plane and the sciatic nerve before its division was visualized lateral to the popliteal artery and in between the bicep femoris and semimembranosus/semitendinosus muscles. After identification, the lateral portion of the thigh was prepped with Betadine solution three times and Lidocaine 1% was injected subcutaneously for topical anesthesia. At this point, a # 21 gauge Stimuplex insulated 4 inch needle was inserted into pre-marked area and advanced in a perpendicular direction. The needle was inserted above the ultrasound transducer in-plane towards the sciatic nerve in a [id number] direction. Needle advancement was performed carefully under direct ultrasound visualization. Nerve stimulator was used and dorsiflexion of the __left___ foot was elicited at a current of _2.0____ MA. After repeated negative aspiration, 1 cc of _0.5____ % ___ropivicaine was injected and this was flowed with __19____ cc of __0.5____% __ropivicaine ___. Under ultrasound guidance the local anesthetics were observed surrounding sciatic nerve . The needle was removed intact and sterile dressing was applied. The patient tolerated the popliteal nerve block well with stable vital signs and was subsequently prepared for the surgery.
--- NOTE | 2018-01-25 11:15 | PCM.SURG1 ---
Surgeon's Initial Post Op Note - Surgeon's Notes Surgeon: Dr. Demarco, DPM Counsellors: Dr. Jame Sim, PGY3, Dr. Debra Hyde, PGY3, Dr. Jame Zaragoza, PGY2 Type of Anesthesia: General Endo, Local Anesthesia Administered By: Dr. Sosa Pre-Operative Diagnosis: Left Ankle Bi-malleolar Fracture Operative Findings: see dictation. I: Popliteal block, pre-op 10 cc 0.5% Marcaine plain, post-op 24 cc 0.5% Marcaine plain. M: 2-0 Vicryl, 3-0 Vicryl, 4-0 Vicryl, Ham, 6-hole recon tibial plate, 3.5 X 10 locking screw (2), 3.5 X 12 cortical screw (1), 3.5 X 14 cortical screw (2), 4.0 X 12 cancellous screw (1), 4.0 X 44 cannulated screw (2) Post-Operative Diagnosis: same Operation Performed: Open reduction Internal fixation of Left ankle bimalleolar fracture Specimen/Specimens Removed: none Estimated Blood Loss: EBL {In ML}: 10 Blood Products Given: N/A Drains Used: No Drains Post-Op Condition: Good Date of Surgery/Procedure: 01/25/18 Time of Surgery/Procedure: 11:17
--- NOTE | 2018-01-25 13:18 | CP.PCM.PN ---
Subjective - Date & Time of Evaluation Date of Evaluation: 01/25/18 Time of Evaluation: 13:16 - Subjective Subjective: Podiatry progress note for Dr. Demarco, 72 y/o female was seen and evaluated at bedside for Dr. Demarco s/p surgery. Patient was resting comfortably and in no acute distress. Patient's family was present at bedside. In length discussion with family that patient will be transferred to a subacute rehab facility for further care. Family was in agreement Objective - Vital Signs/Intake and Output Vital Signs (last 24 hours): Temp Pulse Resp BP Pulse Ox 97.9 F 88 20 131/75 99 01/25/18 12:54 01/25/18 12:54 01/25/18 12:54 01/25/18 12:54 01/25/18 12:54 Intake and Output: 01/25/18 01/25/18 06:59 18:59 Intake Total 500 Balance 500 - Medications Medications: Current Medications Acetaminophen (Tylenol 325mg Tab) 650 mg PO Q6 PRN PRN Reason: Pain, Mild (1-3) Acetaminophen (Tylenol 325mg Tab) 325 mg PO Q4 PRN PRN Reason: Pain, Mild (1-3) Atorvastatin Calcium (Lipitor) 40 mg PO DAILY [facility] Last Admin: 01/25/18 09:52 Dose: Not Given Dicyclomine HCl (Bentyl) 20 mg PO TID PRN PRN Reason: Abdominal pain Last Admin: 01/23/18 18:33 Dose: 20 mg Enoxaparin Sodium (Lovenox) 40 mg SC DAILY [facility]; Protocol Last Admin: 01/23/18 08:53 Dose: 40 mg Famotidine (Pepcid) 40 mg PO HS [facility] Last Admin: 01/24/18 21:25 Dose: 40 mg HCTZ/Losartan Potassium (Hyzaar 12.5 Mg-50 Mg) 1 tab PO DAILY [facility] Last Admin: 01/25/18 09:52 Dose: Not Given Sodium Chloride (Sodium Chloride 0.9%) 1,000 mls @ 0 mls/hr IV .Q0M [facility] Stop: 01/26/18 06:44 Oxycodone/Acetaminophen (Percocet 5/325 Mg Tab) 1 tab PO Q4 PRN PRN Reason: Pain, moderate (4-7) Stop: 01/28/18 10:20 Oxycodone/Acetaminophen (Percocet 5/325 Mg Tab) 2 tab PO Q4 PRN PRN Reason: Pain, severe (8-10) Stop: 01/28/18 10:20 - Labs Labs: 01/25/18 06:51 01/25/18 06:51 PT 11.5 Seconds (9.8-13.1) 01/21/18 21:05 INR 1.0 01/21/18 21:05 APTT 27.0 Seconds (25.6-37.1) 01/21/18 21:05 - Constitutional Appears: Well, Non-toxic, No Acute Distress - Head Exam Head Exam: ATRAUMATIC, NORMOCEPHALIC - Extremities Exam Additional comments: Patient in a bi-valved cast s/p surgery, CFT less than 3 seconds X 5 - Neurological Exam Neurological Exam: Alert, Awake, Oriented x3 - Psychiatric Exam Psychiatric exam: Normal Affect, Normal Mood Assessment and Plan - Assessment and Plan (Free Text) Assessment: 72 y/o female seen and evaluated s/p surgery of the left ankle Plan: Patient was seen and evaluated Plan was discussed with Dr. Demarco Patient to be discharged to a subacute rehab facility as per family's wish Patient provided with Rx Keflex and Percocet for pain Patient's family aware that patient's cast must remain C/D/I, and dressing should not be changed at this time Patient's family aware that patient to follow up with Dr. Demarco in his office for further care Patient stable for discharge from podiatry standpoint
--- NOTE | 2018-01-25 14:11 | RAD ---
Date of service: 01/25/2018 PROCEDURE: Left Ankle Radiographs. HISTORY: s/p left ankle surgery COMPARISON: Left ankle radiographs dated 01/21/2018. FINDINGS: Distal left lower extremity cast limits evaluation of fine bony detail. There been interval reduction plate and screw fixation of the distal fibula as well as screw fixation of the medial malleolus. Osseous components now appear in anatomic alignment. No new fracture or other significant interval changes identified. IMPRESSION: Interval ORIF of the distal fibula and medial malleolus.
--- NOTE | 2018-01-25 15:39 | RAD ---
Date of service: 01/25/2018 PROCEDURE: Intraoperative fluoroscopy HISTORY: ORIF LEFT ANKLE COMPARISON: Not available TECHNIQUE: Intraoperative fluoroscopy was provided for ORIF distal fibular fracture and medial malleolar fracture. Total time of fluoroscopy was 30.1 sec. Cumulative dose was 0.93 mGy FINDINGS: Multiple fluoroscopic spot films are submitted demonstrating progressive steps during ORIF of distal fibular and medial malleolar fractures. IMPRESSION: Fluoroscopy provided
[2018-01-25] MEDS: Oxycodone/Acetaminophen 5/325 mg Tab PO PRN (20:34)
[2018-01-26] MEDS: Oxycodone/Acetaminophen 5/325 mg Tab PO PRN ×3 (02:02→12:11)
[2018-01-26 06:43] LABS: HEMOGLOBIN 10.7 g/dL (12.0-16.0); MEAN CORPUSCULAR HEMOGLOBIN 31.4 pg (27.0-31.0); MEAN CORPUSCULAR HGB CONC 34.2 g/dL (33.0-37.0); RBC 3.42 Mil/uL (3.80-5.20); RED CELL DISTRIBUTION WIDTH 14.3 % (11.5-14.5); WHITE BLOOD COUNT 6.5 K/uL (4.8-10.8)
[2018-01-26 07:06] LABS: ALB/GLOB RATIO 1.1 (1.0-2.1); ALBUMIN 3.3 g/dL (3.5-5.0)
--- NOTE | 2018-01-26 08:20 | OP ---
PROCEDURE DATE: 01/25/2018 PREOPERATIVE DIAGNOSIS: Left bimalleolar ankle fracture. POSTOPERATIVE DIAGNOSIS: Left bimalleolar ankle fracture. PROCEDURE PERFORMED: 1) Left ankle open reduction with internal fixation of fibular fracture. 2 Left ankle open reduction with internal fixation of medial malleolar fracture. PRIMARY SURGEON: Sukhi Demarco DPM PRIMARY MESSAGING ARCHITECT: Emanuel Sim DPM, PGY-3 SECONDARY MESSAGING ARCHITECT: Linda Hyde, PGY-[address] Mary Zaragoza, PGY-2. ANESTHESIOLOGIST: Dr. Sosa. ANESTHESIA TYPE: General LMA with regional popliteal block and local anesthetic. SPECIMENS: None. INDICATIONS: The patient is a 72-year-old female who had suffered a traumatic injury and is now need for surgical intervention. The patient signed a surgical consent after careful explanation of risks, benefits, complications and potential alternatives to the proposed surgical procedure. No guarantees were either given nor implied. All the patient's questions were answered to her satisfaction. PREPARATION: The patient was brought into the operating room, where prior to transfer to the operating room table the patient received a ipsilateral right lower extremity popliteal block. The patient was then transferred over to the operating room table and placed on the operating room table on supine position. Once general anesthesia was confirmed to have been administered and achieved, the patient received a well-padded pneumatic tourniquet for the patient's left thigh, which was kept at 350 mmHg to be insufflated once the procedure began. The patient's left lower extremity was then prepped and draped in the usual sterile manner up to the level of the knee. Lower extremity was exsanguinated. Tourniquet was inflated and the procedure began. PROCEDURE: 1) Left ankle open reduction with internal fixation of fibular fracture. Attention was then directed to the medial aspect of the patient's left leg where the patient where the patient received 10 mL of 0.50% Marcaine plain with a local block type fashion to the distal portion of the saphenous nerve to complete anesthetic blockage to the level of the ankle. With the injection complete, attention was then directed to the medial aspect of the patient's ankle where anatomic margins of medial malleolus and the distal tibia where marked. At this time, a longitudinal incision in line with the anterior medial aspect of the medial malleolus was created using #15 blade, approximately 4 cm in length. This incision was then extended down to the subcutaneous tissue layers with care being taken to identify, avoid, and retract all vital neurovascular structures. All bleeders were cauterized and ligated as needed and encountered. At this time, medial malleolus was encountered and it was noted that there was periosteal/capsular rupture with no significant distal medial malleolus fracture fragment appreciated. Medial malleolus fracture fragment was displaced distally and translated mildly laterally. At this time medial malleolus and impending fracture site was then incised in the linear longitudinal fashion and retracted medial laterally thus allowing visualization loulou medial gutter of the ankle joint, where there was mild hematoma formation. Surgical site was flushed with copious amounts of sterile saline and medullary bony debris which had translated into the ankle joint was carefully excised and passed from the operative field. Soft tissue impingement extending in the fracture site was then debrided and passed from the operative field. Surgical site was flushed with copious amounts of sterile saline. Noted that to fully mobilize medial malleolus, all ligamentous distal attachments were left intact, with mild manipulation it should be noted that medial malleolus at this time was near fully reducible with lateral columns still displaced and not fixated, it was noted that upon manipulation into full ankle joint reduction, medial malleolus was fully reduced. At this time, medial incision site was again flushed with copious amounts of sterile saline and packed with sterile gauze and wrapped, and the attention was then directed to the lateral aspect of the patient's ankle. With attention focused on the lateral aspect of the patient's left ankle, the lateral malleolar and distal fibula shaft and anatomical margins were marked and approximately 7 cm linear longitudinal incision was made. Using #15 blade, this incision was extended down to the subcutaneous tissue layer with care being taken to identify, avoid, and retract all vital neurovascular structures. All bleeders were cauterized and ligated as needed and encountered. At this time, linear longitudinal and periosteal incision was made in line with the skin incision near full length. Periosteal structures were intact medially and laterally with presentation of tendinous structures and distal ligamentous capsular attachments. At this time, fracture fragment was encountered being freely movable, but at a well reduced anatomical length with lateral displacement. Distal talofibular articulation was evaluated and was found to be intact. Once stressed, no syndesmotic injury was assessed at that time. Fracture site impinging soft tissue was curetted and resected. Surgical site was then flushed with copious amounts of sterile saline. At this time, under fluoroscopic evaluation, ankle joint was manually manipulated and held in a reduced anatomic position. Bone rasps and clamps were held to maintain reduction. It was noted that at this time while attempting to maintain reduction with bone grasper and clamps, the patient's cortical bone was moderately osteoporotic and reduction clamps were not maintaining reduction. At this time, we tried to manual manipulation under distraction with the ankle joint in reduced anatomical position. A 0.062 K-wire was then driven from the lateral cortex of the proximal shaft to the distal lateral malleolar fragment to hold length and alignment. At this time, following standard AO principles and technique, a Synthes 2.7 screw was utilized to act as an interfragmentary screw, mild suppression to cause fibula fracture osteotomy was noted. Upon assessment on fluoroscopic guidance for corrected position of interfragmentary screw, reduction was lost. At that time intraoperative decision was made to perform bridge plating. Interfragmentary screw was removed. Ankle joint was distracted and placed in reduced corrected anatomical position, and Synthes 6 hole LCP recon plate was contoured to the fibula anatomy and screwed into place with a pair of Synthes 3.5 x 10 mm locking screws distally. 3rd most distal hole was skimped as it was in line with the fascia and proximal three holes were drilled with Synthes 3.5 x 12 mm cortical screw, Synthes 4 x 12 cancellous screws and Synthes 3.5 x 14 cortical screws respectively. Manual manipulation and distraction was ceased at this point. Stability was evaluated under fluoroscopy. Final anatomical position was noted to be ideal with return of normal anatomical length and orientation. Surgical site was then flushed with copious amounts of sterile saline. Periosteal sutures were then reapproximate using combination of 2-0 and 3-0 Vicryl. Subcutaneous tissues were reapproximated using combination of 3-0 and 4-0 Vicryl. Skin was approximated using skin melissa. 2 Left ankle open reduction with internal fixation of medial malleolar fracture Attention was then redirected to the medial incision site at the level of the medial malleolus. Under fluoroscopic evaluation with reduce to maintain lateral fibular positioning, minimal manipulation of the medial malleolus was needed to place into corrected anatomical position with completed reestablishment of ankle mortise. At this time a pair of 0.045 inch K-wire was then driven from distal medial malleolar fracture fragment to the proximal tibia with care being taken to avoid the periarticular cartilage level. Positioning of K-wires were then placed in parallel and under fluoroscopic evaluation rested well within cancellous bone. At this time, following standard AO principles and technique, a 4-0 drill bit was utilized to drill both K-wires for placement of the cannulated screw. Following completion of this, the pair of Synthes 4 x 44 wire threaded cannulated screws were driven and fixating medial malleolus. Upon stress, medial malleolus was stable and suffered no displacement of rotation. It should be noted that upon countersinking of most posterior cannulated screw minimal sheer force abutted medial cortical bone slightly, this bone was reapproximated and sutured in place. The surgical site was then flushed with copious amounts of sterile saline. Periosteal and capsular structures were reapproximated using 2-0 Vicryl subcutaneous tissue layers was reapproximated using 3-0 Vicryl and 4-0 Vicryl. Skin was then reapproximated using skin melissa. Two hour maximum tourniquet time had been reached at this time. Tourniquet was allowed to be deflated and was not reinflated for the remainder of the procedure. The patient then received a total of 24 mL of 0.5% Marcaine plain in a local block type fashion along the saphenous nerve course. Surgical sites were then cleansed and dressed with Xeroform 4 x 4 gauze, Kerlix and CHEYANNE. The patient was placed in a bi-valved fiberglass cast and a knee immobilizer. POSTOPERATIVE CONDITION: The patient tolerated the anesthesia and procedure well and was escorted to the recovery room with vital signs stable and neurovascular status intact to the left lower extremity. The patient will follow up with Dr. Demarco in his office on an outpatient basis. Emanuel Sim DPM Sukhi Demarco DPM CAMRYN
[2018-01-26 08:45] VITALS: BP 125/66; PULSE 84; RESP 20
[2018-01-26] MEDS: HCTZ/Losartan 12.5/50 Tab PO SCH (09:10)
[2018-01-26] MEDS: Enoxaparin 40 mg Syringe SC SCH (09:12)
--- NOTE | 2018-01-26 09:31 | CP.PCM.DIS ---
Provider - Provider Date of Admission: 01/21/18 22:41 Attending physician: Shravan Lynn Consults: Podiatry: Dr Demarco Ortho: Dr Clemente Cardiology: Dr Jordan Time Spent in preparation of Discharge (in minutes): 30 Diagnosis - Discharge Diagnosis (1) Trimalleolar fracture of ankle, closed Status: Acute (2) Patella fracture Status: Acute (3) Diverticulosis Status: Chronic (4) HTN (hypertension) Status: Chronic Hospital Course - Lab Results Lab Results: Most Recent Lab Values WBC 6.5 K/uL (4.8-10.8) 01/26/18 05:40 RBC 3.42 Mil/uL (3.80-5.20) L 01/26/18 05:40 Hgb 10.7 g/dL (12.0-16.0) L 01/26/18 05:40 Hct 31.4 % (34.0-47.0) L 01/26/18 05:40 MCV 92.0 fl (81.0-99.0) 01/26/18 05:40 MCH 31.4 pg (27.0-31.0) H 01/26/18 05:40 MCHC 34.2 g/dL (33.0-37.0) 01/26/18 05:40 RDW 14.3 % (11.5-14.5) 01/26/18 05:40 Plt Count 263 K/uL (130-400) 01/26/18 05:40 MPV 9.3 fl (7.2-11.7) 01/24/18 05:40 Neut % (Auto) 46.8 % (50.0-75.0) L 01/24/18 05:40 Lymph % (Auto) 36.3 % (20.0-40.0) 01/24/18 05:40 [place] % (Auto) 14.2 % (0.0-10.0) H 01/24/18 05:40 Eos % (Auto) 2.2 % (0.0-4.0) 01/24/18 05:40 Baso % (Auto) 0.5 % (0.0-2.0) 01/24/18 05:40 Neut # (Auto) 2.3 K/uL (1.8-7.0) 01/24/18 05:40 Lymph # (Auto) 1.8 K/uL (1.0-4.3) 01/24/18 05:40 [place] # (Auto) 0.7 K/uL (0.0-0.8) 01/24/18 05:40 Eos # (Auto) 0.1 K/uL (0.0-0.7) 01/24/18 05:40 Baso # (Auto) 0.0 K/uL (0.0-0.2) 01/24/18 05:40 PT 11.5 Seconds (9.8-13.1) 01/21/18 21:05 INR 1.0 01/21/18 21:05 APTT 27.0 Seconds (25.6-37.1) 01/21/18 21:05 Sodium 139 mmol/l (132-148) 01/26/18 05:40 Potassium 4.4 MMOL/L (3.6-5.0) 01/26/18 05:40 Chloride 100 mmol/L (98-107) 01/26/18 05:40 Carbon Dioxide 34 mmol/L (22-30) H 01/26/18 05:40 Anion Gap 9 (10-20) L 01/26/18 05:40 BUN 20 mg/dl (7-17) H 01/26/18 05:40 Creatinine 1.2 mg/dl (0.7-1.2) 01/26/18 05:40 Est GFR ( Amer) 53 01/26/18 05:40 Est GFR (Non-Af Amer) 44 01/26/18 05:40 POC Glucose (mg/dL) 104 mg/dL (65-110) 01/26/18 05:12 Random Glucose 115 mg/dL (65-105) H 01/26/18 05:40 Calcium 9.0 mg/dL (8.4-10.2) 01/26/18 05:40 Total Bilirubin 0.5 mg/dl (0.2-1.3) 01/26/18 05:40 AST 26 U/L (14-36) 01/26/18 05:40 ALT 21 U/L (9-52) 01/26/18 05:40 Alkaline Phosphatase 94 U/L (38-126) 01/26/18 05:40 Total Protein 6.5 G/DL (6.3-8.2) 01/26/18 05:40 Albumin 3.3 g/dL (3.5-5.0) L 01/26/18 05:40 Globulin 3.2 gm/dL (2.2-3.9) 01/26/18 05:40 Albumin/Globulin Ratio 1.1 (1.0-2.1) 01/26/18 05:40 Lipase 131 U/L (23-300) 01/21/18 20:17 - Hospital Course Hospital Course: 72 y/o woman w/ pmh of HTN, HLD, diverticulosis and Osteoarthritis admitted dur to trimalleolar L ankle fracture and L transverse patellar fracture s/p fall at home. Patient was leaving building due to fire alarm and slipped on wet metal grating floor. Patient denies head trauma, LOC, or any other trauma. Patient is s/p ORIF of left ankle fx POD 1, patient tolerated well the procedure. Podiatry and Ortho were on board. Ortho recommended no surgical intervention for patella fx and pt was placed an knee immovilizer. PT recommends ISIDRO. Patient going to [facility] rehab. patient with instructions to f/u with Ortho in 2 weeks call for appt, f/u with Dr Demarco in Podiatry clinic in 1 week Home medications Acetaminophen (Tylenol 325mg Tab) 650 mg PO Q6 PRN, Pain, Mild (1-3) Percocet 5/325mg 1 tab PO Q4H prn for moderate pain (4-7) Percocet 5/325mg 2 tab PO Q4H prn for severe pain (8-10) Atorvastatin Calcium (Lipitor) 40 mg PO DAILY [facility] Dicyclomine HCl (Bentyl) 20 mg PO TID PRN, Abdominal pain Enoxaparin Sodium (Lovenox) 40 mg SC DAILY [facility] Famotidine (Pepcid) 40 mg PO HS [facility] HCTZ/Losartan Potassium (Hyzaar 12.5 Mg-50 Mg) 1 tab PO DAILY [facility] Cefazolin 500mg cap, 1 cap PO Q12H tracy Discharge Exam - Head Exam Head Exam: NORMAL INSPECTION - Eye Exam Eye Exam: EOMI, PERRL - Respiratory Exam Respiratory Exam: Clear to PA & Lateral, NORMAL BREATHING PATTERN - Cardiovascular Exam Cardiovascular Exam: REGULAR RHYTHM, +S1, +S2 - GI/Abdominal Exam GI & Abdominal Exam: Normal Bowel Sounds, Soft. absent: Distended, Tenderness - Extremities Exam Additional comments: Cast in LLE noted C/D/I, knee immovilizer in place, sensation preserved in toes, capillary refill < 2sec. Able to move toes. - Neurological Exam Neurological exam: Alert, Oriented x3 - Psychiatric Exam Psychiatric exam: Normal Mood - Skin Skin Exam: Dry, Warm Discharge Plan - Follow Up Plan Condition: FAIR Disposition: REHAB FACILITY/REHAB UNIT Patient education suggested?: Yes Instructions: Patella Fracture, Open Reduction and Internal Fixation Surgery Additional Instructions: maintain knee immobilizer at all times, do not bend knee f/u Dr. Thomas 2 weeks call for appt f/u with Dr Demarco in his clinic in 1 week Referrals: Sukhi Demarco DPM [Doctor Podiatric Medicine] - Bossman Clemente MD [Staff Provider] -
--- NOTE | 2018-01-26 09:44 | CP.PCM.PN ---
Subjective - Date & Time of Evaluation Date of Evaluation: 01/26/18 Time of Evaluation: 09:41 - Subjective Subjective: Podiatry progress note for Dr. Demarco 72 y/o female was seen and evaluated at bedside s/p 1 day left ankle open reduction and internal fixation. patient states she is in minimal pain and feels better after receiving pain medication. As per nursing, no acute overnight events. Patient pending transfer to [facility]. Objective - Vital Signs/Intake and Output Vital Signs (last 24 hours): Temp Pulse Resp BP Pulse Ox 100 F H 84 20 125/66 93 L 01/26/18 08:44 01/26/18 08:44 01/26/18 08:44 01/26/18 08:44 01/26/18 08:44 - Medications Medications: Current Medications Acetaminophen (Tylenol 325mg Tab) 650 mg PO Q6 PRN PRN Reason: Pain, Mild (1-3) Acetaminophen (Tylenol 325mg Tab) 325 mg PO Q4 PRN PRN Reason: Pain, Mild (1-3) Atorvastatin Calcium (Lipitor) 40 mg PO DAILY [facility] Last Admin: 01/26/18 09:09 Dose: 40 mg Cephalexin Monohydrate (Keflex) 500 mg PO Q12 [facility]; Protocol Last Admin: 01/26/18 09:09 Dose: 500 mg Dicyclomine HCl (Bentyl) 20 mg PO TID PRN PRN Reason: Abdominal pain Last Admin: 01/23/18 18:33 Dose: 20 mg Enoxaparin Sodium (Lovenox) 40 mg SC DAILY [facility]; Protocol Last Admin: 01/26/18 09:12 Dose: 40 mg Famotidine (Pepcid) 40 mg PO HS [facility] Last Admin: 01/25/18 21:42 Dose: 40 mg HCTZ/Losartan Potassium (Hyzaar 12.5 Mg-50 Mg) 1 tab PO DAILY [facility] Last Admin: 01/26/18 09:10 Dose: 1 tab Oxycodone/Acetaminophen (Percocet 5/325 Mg Tab) 1 tab PO Q4 PRN PRN Reason: Pain, moderate (4-7) Stop: 01/28/18 10:20 Oxycodone/Acetaminophen (Percocet 5/325 Mg Tab) 2 tab PO Q4 PRN PRN Reason: Pain, severe (8-10) Stop: 01/28/18 10:20 Last Admin: 01/26/18 09:04 Dose: 2 tab - Labs Labs: 01/26/18 05:40 01/26/18 05:40 PT 11.5 Seconds (9.8-13.1) 01/21/18 21:05 INR 1.0 01/21/18 21:05 APTT 27.0 Seconds (25.6-37.1) 01/21/18 21:05 - Constitutional Appears: Well, Non-toxic, No Acute Distress - Head Exam Head Exam: ATRAUMATIC, NORMOCEPHALIC - Extremities Exam Additional comments: Cast Clean, dry and intact, CFT less than 3 seconds, patient able to wiggle her digits - Neurological Exam Neurological Exam: Alert, Awake, Oriented x3 - Psychiatric Exam Psychiatric exam: Normal Affect, Normal Mood Assessment and Plan - Assessment and Plan (Free Text) Assessment: 72 y/o female seen and evaluated s/p 1 day left ankle ORIF Plan: Patient seen and evaluated at bedside Plan discussed with Dr. Demarco Chart, lab and vitals were reviewed; afebrile absent leukocytosis Patient bi-valved cast clean dry and intact Patient placed in a posterior splint Patient to resume Lovenox today Patient given Keflex 500 mg and patient provided with Rx to continue at [facility] Patient pending transfer to [facility] and will follow up with Dr. Demarco in his office in 1 week Orthopedic surgery will follow patient regarding patellar fracture; no surgical intervention, knee immobilizer. Continue pain management Podiatry will continue to follow patient while in house
--- NOTE | 2018-01-26 11:21 | CP.PCM.PN ---
Subjective - Date & Time of Evaluation Date of Evaluation: 01/26/18 Time of Evaluation: 14:41 - Subjective Subjective: Patient denies pain in her knee. Ankle pain is controlled. Objective - Vital Signs/Intake and Output Vital Signs (last 24 hours): Temp Pulse Resp BP Pulse Ox 100 F H 84 20 125/66 93 L 01/26/18 08:44 01/26/18 08:44 01/26/18 08:44 01/26/18 08:44 01/26/18 08:44 - Medications Medications: Current Medications Acetaminophen (Tylenol 325mg Tab) 650 mg PO Q6 PRN PRN Reason: Pain, Mild (1-3) Acetaminophen (Tylenol 325mg Tab) 325 mg PO Q4 PRN PRN Reason: Pain, Mild (1-3) Atorvastatin Calcium (Lipitor) 40 mg PO DAILY [facility] Last Admin: 01/26/18 09:09 Dose: 40 mg Cephalexin Monohydrate (Keflex) 500 mg PO Q12 [facility]; Protocol Last Admin: 01/26/18 09:09 Dose: 500 mg Dicyclomine HCl (Bentyl) 20 mg PO TID PRN PRN Reason: Abdominal pain Last Admin: 01/23/18 18:33 Dose: 20 mg Enoxaparin Sodium (Lovenox) 40 mg SC DAILY [facility]; Protocol Last Admin: 01/26/18 09:12 Dose: 40 mg Famotidine (Pepcid) 40 mg PO HS [facility] Last Admin: 01/25/18 21:42 Dose: 40 mg HCTZ/Losartan Potassium (Hyzaar 12.5 Mg-50 Mg) 1 tab PO DAILY [facility] Last Admin: 01/26/18 09:10 Dose: 1 tab Oxycodone/Acetaminophen (Percocet 5/325 Mg Tab) 1 tab PO Q4 PRN PRN Reason: Pain, moderate (4-7) Stop: 01/28/18 10:20 Oxycodone/Acetaminophen (Percocet 5/325 Mg Tab) 2 tab PO Q4 PRN PRN Reason: Pain, severe (8-10) Stop: 01/28/18 10:20 Last Admin: 01/26/18 09:04 Dose: 2 tab - Labs Labs: 01/26/18 05:40 01/26/18 05:40 PT 11.5 Seconds (9.8-13.1) 01/21/18 21:05 INR 1.0 01/21/18 21:05 APTT 27.0 Seconds (25.6-37.1) 01/21/18 21:05 - Extremities Exam Additional comments: Left knee: immobilizer intact, extended, +ROM toes, sensation intact cast to left ankle Assessment and Plan (1) Nondisplaced fracture of left patella Assessment & Plan: maintain knee immobilizer at all times, do not bend knee repeat xrays left knee AP/lat show no change in position of nondisplaced fx ortho stable for d/c to rehab f/u Dr. Thomas 2 weeks call for appt d/w Dr. Thomas agrees with above Status: Acute
[2018-01-26 12:32] VITALS: TEMP 98.2
--- NOTE | 2018-01-26 12:35 | RAD ---
Date of service: 01/26/2018 PROCEDURE: Left Knee Radiographs. HISTORY: Pain. COMPARISON: Left knee radiographs dated 01/21/2018. FINDINGS: Left lower extremity cast limits evaluation of fine bony detail. Nondisplaced transverse patellar fracture is redemonstrated without significant change in appearance or alignment. No new fracture or other significant interval changes identified. IMPRESSION: Transverse patellar fracture, unchanged.
[2018-01-29 15:06] VITALS: O2SAT 100
--- NOTE | 2018-02-01 23:44 | PQF ---
PROVIDER RESPONSE TEXT: This patient was diagnosed as having a bimalleolar fracture at the left ankle at surgery by the Podia tric Surgeon I agree with the diagnosis of left Bimalleolar fracture. An Open reduction Internal Fixation was done and confirmed this diagnosis. Shravan Lynn MD REVIEWER QUERY TEXT: Conflicting Documentation Clarification A single mention or documentation of multiple diagnoses for the same clinical presentation appears in the record. Please clarify the diagnosis/diagnoses bimalleolar vs trimalleolar fracture: Please also document if the condition is: -- Confirmed and current -- Confirmed, treated and resolved -- Ruled out -- Other, please specify The patient's Clinical Indicators include: Operative report documented "ORIF bimalleolar fracture." Discharge Summary documented "Trimalleolar fracture." Query created by: Maria Alejandra Marie on 01/28/2018 1:07 PM Electronically signed by: Shravan Lynn MD 02/01/2018 11:40 PM
== END 2018-01-26 13:36 | DRG 493 ==
LOC: H.ER 18:01 → H.ERHOLD 22:41 → MERGE 22:41 → H.MEDSURG1 01-22 01:31
PROVIDERS: ADMIT Internal Medicine; ATTEND Internal Medicine
PROC: 0QSHXZZ Reposition Left Tibia, External Approach (ICD-10-PCS; 2018-01-21)
PROC: 0QSKXZZ Reposition Left Fibula, External Approach (ICD-10-PCS; 2018-01-21)
PROC: 3E0T3BZ Introduction of Anesthetic Agent into Peripheral Nerves and Plexi, Percutaneous Approach (ICD-10-PCS; 2018-01-25)
PROC: 0QSH04Z Reposition Left Tibia with Internal Fixation Device, Open Approach (ICD-10-PCS; 2018-01-25)
PROC: 0QSK04Z Reposition Left Fibula with Internal Fixation Device, Open Approach (ICD-10-PCS; principal; 2018-01-25 07:45)
DX: S82.852A Displaced trimalleolar fracture of left lower leg, initial encounter for closed fracture (principal); S82.035A Nondisplaced transverse fracture of left patella, initial encounter for closed fracture; D62 Acute posthemorrhagic anemia; W01.0XXA Fall on same level from slipping, tripping and stumbling without subsequent striking against object, initial encounter; I10 Essential (primary) hypertension; K57.90 Diverticulosis of intestine, part unspecified, without perforation or abscess without bleeding; E78.5 Hyperlipidemia, unspecified; E78.00 Pure hypercholesterolemia, unspecified; M19.90 Unspecified osteoarthritis, unspecified site; M81.0 Age-related osteoporosis without current pathological fracture

== ENCOUNTER 2018-06-04 22:12 | Emergency (ER) | payer MEDICARE ==
[2018-06-04 22:13] VITALS: BMI 23.0
[2018-06-04 22:27] VITALS: O2SAT 97
[2018-06-04] MEDS ORDERED: Sodium Chloride 0.9% 1,000 ML IV STA (22:56)
[2018-06-04] MEDS ORDERED: Albuterol-Ipratrop 3 mg / 0.5 (3 ml) UD INH STA (22:56)
--- NOTE | 2018-06-04 23:42 | ED PDOC ---
History of Present Illness History of Present Illness: 72 years old female with a history of hypertension presents to ER for evaluation of flu-like symptoms onset 5 days ago. Patient reports dry cough and experiencing chest pain and shortness of breath with coughing. She states she received flu and pneumonia vaccines 8 months ago. Patient denies fever. PMD: None provided HPI: Influenza Time Seen by Provider: 06/04/18 22:43 Chief Complaint: Flu-like Symptoms Chief Complaint (Provider): Flu-like Symptoms History Per: Patient Exam Limitations: no limitations Onset/Duration Of Symptoms: Days (x5) Symptoms include: cough, chest pain, difficulty breathing. denies: fever Past Medical History Reviewed: Historical Data, Nursing Documentation, Vital Signs Vital Signs: Last Vital Signs Temp 99.1 F 06/04/18 22:24 Pulse 72 06/04/18 22:24 Resp 18 06/04/18 22:24 BP 161/78 H 06/04/18 22:24 Pulse Ox 97 06/04/18 22:24 - Medical History PMH: Arthritis, HTN, Hypercholesterolemia, Osteoporosis Denies: Chronic Kidney Disease - Surgical History Surgical History: (x 1) - Family History Family History: States: Unknown Family Hx - Social History Current smoker - smoking cessation education provided: No Alcohol: None Drugs: Denies - Home Medications Home Medications: Ambulatory Orders Medication Instructions Recorded Atorvastatin [Lipitor] 40 mg PO DAILY 01/22/18 Dicyclomine [Bentyl] 20 mg PO TID 01/22/18 Omeprazole 40 mg PO DAILY 01/22/18 Valsartan/Hydrochlorothiazide 1 mg PO DAILY 01/22/18 [Diovan Hct 160-12.5 mg Tab] Acetaminophen [Tylenol 325mg tab] 650 mg PO Q6 PRN tab 01/26/18 Cephalexin [Keflex] 500 mg PO Q12 cap 01/26/18 Enoxaparin [Lovenox] 40 mg SC DAILY syr 01/26/18 oxyCODONE/Acetaminophen [Percocet 1 tab PO Q4 PRN tab 01/26/18 5/325 mg Tab] oxyCODONE/Acetaminophen [Percocet 2 tab PO Q4 PRN tab 01/26/18 5/325 mg Tab] Albuterol HFA [Ventolin HFA 90 1 - 2 puff IH Q6 PRN #1 inhaler 06/05/18 mcg/actuation (8 g)] Benzonatate [Tessalon Perle] 100 mg PO TID PRN #15 capsule 06/05/18 levoFLOXacin [Levaquin] 500 mg PO DAILY #7 tab 06/05/18 - Allergies Allergies/Adverse Reactions: Allergies Allergy/AdvReac Type Severity Reaction Status Date / Time No Known Allergies Allergy Verified 01/31/18 15:01 Review of Systems ROS Statement: Except As Marked, All Systems Reviewed And Found Negative Constitutional: Negative for: Fever Cardiovascular: Positive for: Chest Pain Respiratory: Positive for: Cough (dry), Shortness of Breath Physical Exam - Reviewed Nursing Documentation Reviewed: Yes Vital Signs Reviewed: Yes - Physical Exam Appears: Positive for: Uncomfortable Head Exam: Positive for: ATRAUMATIC, NORMOCEPHALIC Skin: Positive for: Normal Color, Warm, Dry ENT: Positive for: Normal ENT Inspection Neck: Positive for: Normal, Painless ROM, Supple Cardiovascular/Chest: Positive for: Regular Rate, Rhythm. Negative for: Murmur Respiratory: Positive for: Rhonchi (Bilateral inspiratory) Gastrointestinal/Abdominal: Positive for: Normal Exam, Soft. Negative for: Tenderness Back: Positive for: Normal Inspection. Negative for: L CVA Tenderness, R CVA Tenderness Extremity: Positive for: Normal ROM. Negative for: Pedal Edema, Swelling Neurologic/Psych: Positive for: Alert, Oriented (x3) Medical Decision Making Medical Decision Making: Time: 2244 Initial Impression: 72 y/o female presents with flu-like symptoms. Initial Plan: --EKG --CMP --Lactic Acid --Urine dipstick --CBC --CXR --Duoneb 3 ml INH --Toradol 15 mg IVP --Tylenol 325 mg PO --Blood culture --Peak flow pre/post treatment --Influenza A B 0118 Labs reviewed and show no clinically significant abnormality. CXR shows no active disease. Patient reports improvement in symptoms and stable for discharge. Diagnosis acute bronchitis. Scribe Attestation: Documented by Joyce Douglas, acting as a scribe for Zach Miguel MD. Provider Scribe Attestation: All medical record entries made by the Scribe were at my direction and personally dictated by me. I have reviewed the chart and agree that the record accurately reflects my personal performance of the history, physical exam, medical decision making, and the department course for this patient. I have also personally directed, reviewed, and agree with the discharge instructions and disposition. - Laboratory Results Result Diagrams: 06/05/18 00:06 06/05/18 00:06 - ECG O2 Sat by Pulse Oximetry: 97 (RA) Pulse Ox Interpretation: Normal Disposition - Clinical Impression Clinical Impression: Bronchitis - Patient ED Disposition Is Patient to be Admitted: No - Disposition Disposition: Routine/Home Disposition Time: 01:18 Condition: STABLE Prescriptions: Albuterol HFA [Ventolin HFA 90 mcg/actuation (8 g)] 1 - 2 puff IH Q6 PRN #1 inhaler PRN Reason: Shortness Of Breath Benzonatate [Tessalon Perle] 100 mg PO TID PRN #15 capsule PRN Reason: Cough levoFLOXacin [Levaquin] 500 mg PO DAILY #7 tab Instructions: Acute Bronchitis Forms: [facility] (Japanese) Print Language: BELARUSIAN
[2018-06-04] MEDS ORDERED: Albuterol-Ipratrop 3 mg / 0.5 (3 ml) UD ONE (23:57)
[2018-06-05] MEDS ORDERED: Albuterol-Ipratrop 3 mg / 0.5 (3 ml) UD ONE (00:13)
[2018-06-05 00:15] LABS: BASO % 0.4 % (0.0-2.0); EOS # 0.1 K/uL (0.0-0.7); EOS % 1.2 % (0.0-4.0); HEMOGLOBIN 11.7 g/dL (12.0-16.0); LYMPH # 1.9 K/uL (1.0-4.3); LYMPH % 29.9 % (20.0-40.0); MEAN CELL VOLUME 94.7 fl (81.0-99.0); MEAN CORPUSCULAR HEMOGLOBIN 30.8 pg (27.0-31.0); MEAN CORPUSCULAR HGB CONC 32.5 g/dL (33.0-37.0); MEAN PLATELET VOLUME 9.6 fl (7.2-11.7); MONO # 0.5 K/uL (0.0-0.8); MONO % 7.6 % (0.0-10.0); NEUT # 3.9 K/uL (1.8-7.0); NEUT % 60.9 % (50.0-75.0); RBC 3.79 Mil/uL (3.80-5.20); RED CELL DISTRIBUTION WIDTH 14.6 % (11.5-14.5); WHITE BLOOD COUNT 6.4 K/uL (4.8-10.8)
[2018-06-05 00:21] LABS: ALB/GLOB RATIO 1.2 (1.0-2.1); ALBUMIN 4.2 g/dL (3.5-5.0); CALCIUM 9.6 mg/dL (8.4-10.2)
[2018-06-05 01:58] VITALS: BP 133/71; PULSE 76; RESP 16; TEMP 98.3
--- NOTE | 2018-06-05 08:14 | RAD ---
Date of service: 06/04/2018 HISTORY: cough COMPARISON: None available. TECHNIQUE: Chest PA and lateral FINDINGS: LUNGS: No active pulmonary disease. PLEURA: No significant pleural effusion identified. No pneumothorax apparent. CARDIOVASCULAR: Calcific atherosclerotic changes are seen related to the thoracic aorta. Normal cardiac size. No pulmonary vascular congestion. OSSEOUS STRUCTURES: No significant abnormalities. VISUALIZED UPPER ABDOMEN: Normal. OTHER FINDINGS: None. IMPRESSION: No acute cardiopulmonary disease appreciated.
--- NOTE | 2018-06-05 11:53 | CARD ---
APPROVED REPORT Date of service: 06/04/2018 EKG Measurement Heart [id number] <Conclusion> Normal sinus rhythm Normal ECG
== END 2018-06-05 01:20 | disposition home or self-care (01) ==
LOC: H.ER 22:12
DX: J20.9 Acute bronchitis, unspecified (principal); E78.00 Pure hypercholesterolemia, unspecified; I10 Essential (primary) hypertension; M81.0 Age-related osteoporosis without current pathological fracture; Z79.899 Other long term (current) drug therapy
CPT/HCPCS: 71046; 80053; 83605; 85025; 87040; 87804; 93005; 94640; 96374; 99283; J1885; J7030